=== PATIENT | male | born 1930 | race Caucasian/White ===

== ENCOUNTER 2017-12-17 10:21 | Emergency (ER) | payer MEDICARE, OTHER ==
[2017-12-17 11:06] VITALS: RESP 18
--- NOTE | 2017-12-17 12:26 | ED ---
General Adult HPI - General Chief complaint: Urogenital Stated complaint: blood in catheter Time Seen by Provider: 12/17/17 12:02 Source: patient, RN notes reviewed, old records reviewed Mode of arrival: wheelchair Limitations: physical limitation - History of Present Illness Initial comments: This is an 87-year-old male to the ER for evaluation. Patient just ER today for evaluation regards to blood in his Justin catheter. Patient has indwelling Justin, increased blood 2 days. Positive clots. A she recently had irrigated, symptoms returned, patient denies significant abdominal pain - Related Data Home Medications Medication Instructions Recorded Confirmed Ferrous Sulfate [Feosol] 325 mg PO DAILY@0700 12/17/17 12/17/17 Fluticasone Nasal [place] [Flonase 2 spr EA NOSTRIL DAILY PRN 12/17/17 12/17/17 Nasal [place]] Gabapentin [Neurontin] 300 mg PO BID@07,19 12/17/17 12/17/17 Hydrocortisone Cream 1 applic TOPICAL DAILY PRN 12/17/17 12/17/17 [Hydrocortisone 1% Cream] Loratadine [Claritin] 10 mg PO DAILY@0700 12/17/17 12/17/17 Multivitamins, Thera [Multivitamin 1 tab PO DAILY@0700 12/17/17 12/17/17 (formulary)] Sertraline [Zoloft] 25 mg PO DAILY@0700 12/17/17 12/17/17 Simvastatin 80 mg PO HS@1900 12/17/17 12/17/17 Allergies Allergy/AdvReac Type Severity Reaction Status Date / Time Iodinated Contrast- Oral and Allergy Rash/Hives Verified 12/17/17 12:40 IV Dye iodine Allergy Rash/Hives Verified 12/17/17 12:40 Review of Systems ROS Statement: Those systems with pertinent positive or pertinent negative responses have been documented in the HPI. ROS Other: All systems not noted in ROS Statement are negative. Past Medical History Additional Past Medical History / Comment(s): neuropathy, ca colon, prostate History of Any Multi-Drug Resistant Organisms: None Reported Past Surgical History: Joint Replacement Additional Past Surgical History / Comment(s): AAA repair, bladder, prostate Past Psychological History: No Psychological Hx Reported Smoking Status: Former smoker Past Alcohol Use History: None Reported Past Drug Use History: None Reported General Exam Limitations: physical limitation General appearance: alert, in no apparent distress Head exam: Present: atraumatic, normocephalic, normal inspection Eye exam: Present: normal appearance, PERRL, EOMI. Absent: scleral icterus, conjunctival injection, periorbital swelling ENT exam: Present: normal exam, mucous membranes moist Neck exam: Present: normal inspection. Absent: tenderness, meningismus, lymphadenopathy Respiratory exam: Present: normal lung sounds bilaterally. Absent: respiratory distress, wheezes, rales, rhonchi, stridor Cardiovascular Exam: Present: regular rate, normal rhythm, normal heart sounds. Absent: systolic murmur, diastolic murmur, rubs, gallop, clicks GI/Abdominal exam: Present: soft, normal bowel sounds. Absent: distended, tenderness, guarding, rebound, rigid Extremities exam: Present: normal inspection, full ROM, normal capillary refill. Absent: tenderness, pedal edema, joint swelling, calf tenderness Back exam: Present: normal inspection Neurological exam: Present: alert, oriented X3, CN II-XII intact Psychiatric exam: Present: normal affect, normal mood Skin exam: Present: warm, dry, intact, normal color. Absent: rash Course Vital Signs 12/17/17 12/17/17 11:00 13:32 Temperature 97.6 F Pulse Rate 66 78 Respiratory 18 18 Rate Blood Pressure 90/53 141/70 O2 Sat by Pulse 97 98 Oximetry - Reevaluation(s) Reevaluation #1: 12/17/17 14:17 Dr. Null is here in ER evaluating patient Medical Decision Making - Medical Decision Making 79 male the ER for evaluation of hematuria with urinary retention. Patient has Justin catheter placed without difficulty. Patient can be discharged home Disposition Clinical Impression: Malfunction of Justin catheter, Hematuria Disposition: HOME SELF-CARE Condition: Good Instructions: Hematuria (ED), Justin Catheter Placement and Care (ED) Is patient prescribed a controlled substance at discharge?: No If prescribed controlled substance>3 days was MAPS reviewed?: No When asked, does pt state using other controlled substances?: No Referrals: [facility],Clinic [Primary Care Provider] - 1-2 days
--- NOTE | 2017-12-17 14:33 | P.GSCN ---
History of Present Illness Consult date: 12/17/17 Reason for Consult: Hematuria and urinary retention History of present illness: The patient is an 87-year-old male with a history of prostate cancer previously treated with brachii therapy who has developed recurrent bladder cancer. The patient has previously been treated through the [facility]. His bladder cancers have occurred within the bladder and prostatic fossa and had been previously treated with repeated transurethral resection. The patient has urinary retention which has been treated with an indwelling catheter for over 6 months. The catheter was changed on 12/14/2017. The patient says that his catheter plugged with blood and mucus and was irrigated in the [facility] emergency room on 12/15. He came to the emergency room today because his catheter was plugged. The catheter apparently fell out sometime on his way to the emergency room. 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 Review of Systems - Constitutional Reports as per HPI Past Medical History Additional Past Medical History / Comment(s): neuropathy, ca colon, prostate History of Any Multi-Drug Resistant Organisms: None Reported Past Surgical History: Joint Replacement Additional Past Surgical History / Comment(s): AAA repair, bladder, prostate Past Psychological History: No Psychological Hx Reported Smoking Status: Former smoker Past Alcohol Use History: None Reported Past Drug Use History: None Reported Medications and Allergies Home Medications Medication Instructions Recorded Confirmed Type Ferrous Sulfate [Feosol] 325 mg PO DAILY@0712/17/17 12/17/17 History Fluticasone Nasal [place] [Flonase 2 spr EA NOSTRIL DAILY PRN 12/17/17 12/17/17 History Nasal [place]] Gabapentin [Neurontin] 300 mg PO BID@12/17/17 12/17/17 History Hydrocortisone Cream 1 applic TOPICAL DAILY PRN 12/17/17 12/17/17 History [Hydrocortisone 1% Cream] Loratadine [Claritin] 10 mg PO DAILY@69912/17/17 12/17/17 History Multivitamins, Thera [Multivitamin 1 tab PO DAILY@0712/17/17 12/17/17 History (formulary)] Sertraline [Zoloft] 25 mg PO DAILY@0712/17/17 12/17/17 History Simvastatin 80 mg PO HS@1900 12/17/17 12/17/17 History Allergies Allergy/AdvReac Type Severity Reaction Status Date / Time Iodinated Contrast- Oral and Allergy Rash/Hives Verified 12/17/17 12:40 IV Dye iodine Allergy Rash/Hives Verified 12/17/17 12:40 Surgical - Exam Vital Signs Temp Pulse Resp BP Pulse Ox 97.6 F 66 18 90/53 97 12/17/17 11:00 12/17/17 11:00 12/17/17 11:00 12/17/17 11:00 12/17/17 11:00 - General well developed, well nourished, moderate distress - Respiratory normal respiratory effort - Abdomen Abdomen: tender (Suprapubic region), no organomegaly - Genitourinary normal penis with no external lesions, testicles present, testicles non-tender Assessment and Plan (1) Hematuria Narrative/Plan: The patient's gross hematuria is most likely related to recurrent bladder cancer. The penis was prepped with Betadine solution and I successfully passed an 18- Greek coud catheter into the bladder without difficulty. A small amount of mucus initially drained but the majority of the urine which drained from the bladder appeared grossly clear. The patient suprapubic discomfort resolved following catheter drainage. Tentative arrangements are being made to perform cystoscopy under anesthesia either later in the month or early January. It's unclear why the patient's Justin catheter fell out spontaneously. Current Visit: Yes Status: Acute Code(s): R31.9 - HEMATURIA, UNSPECIFIED SNOMED Code(s): 61026366
[2017-12-17 15:02] VITALS: BP 141/78; PULSE 80; TEMP 98.2
== END 2017-12-17 15:01 | disposition home or self-care (01) ==
LOC: EC 10:21
DX: T83.098A Other mechanical complication of other urinary catheter, initial encounter (principal); R31.9 Hematuria, unspecified; R33.9 Retention of urine, unspecified; G62.9 Polyneuropathy, unspecified; Z87.891 Personal history of nicotine dependence; Z79.899 Other long term (current) drug therapy; Z91.041 Radiographic dye allergy status; Z91.048 Other nonmedicinal substance allergy status; Z85.46 Personal history of malignant neoplasm of prostate; Z98.890 Other specified postprocedural states
CPT/HCPCS: 51702; 99283

== ENCOUNTER → 2018-01-02 | Outpatient (CLI) | payer MEDICARE, OTHER ==
[2018-01-02 10:41] LABS: HCT 32.9 % (39.0-53.0); HGB 10.9 gm/dL (13.0-17.5); MCH 29.4 pg (25.0-35.0); MCV 89.1 fL (80.0-100.0); Mean Platelet Volume 6.5; Platelet Count 347 k/uL (150-450); RBC 3.69 m/uL (4.30-5.90); RDW 14.6 % (11.5-15.5); WBC 7.2 k/uL (3.8-10.6)
[2018-01-02 10:57] LABS: Anion Gap 9 mmol/L; Blood Urea Nitrogen 12 mg/dL (9-20); Calcium 8.9 mg/dL (8.4-10.2); Carbon Dioxide 29 mmol/L (22-30); Chloride 98 mmol/L (98-107); Glucose 105 mg/dL (74-99); Potassium 4.8 mmol/L (3.5-5.1); Sodium 136 mmol/L (137-145)
== END ==
LOC: LABPAT 10:03
PROVIDERS: ATTEND Urology
DX: Z01.812 Encounter for preprocedural laboratory examination (principal); R35.0 Frequency of micturition; C61 Malignant neoplasm of prostate; C67.8 Malignant neoplasm of overlapping sites of bladder; Z79.899 Other long term (current) drug therapy
CPT/HCPCS: 80048; 85027; 87086

== ENCOUNTER 2018-01-09 09:14 | Day surgery (SDC) | payer MEDICARE, OTHER ==
[2018-01-03 13:57] VITALS: BMI 23.3
[~2018-01-09 09:14] MED LIST: AMPICILLIN 1,000 MG in SODIUM CHLORIDE 0.9% 50 ML IVPB STA; DEXAMETHASONE SOD PHOSPHATE 10 MG/ML 1 ML VIAL IV ONE; LACTATED RINGERS 1,000 ML IV SCH; LIDOCAINE 1% 20 ML VIAL (10MG/ML) FOR IV START INTRADERMA PRN; MIDAZOLAM 2 MG/2 ML VIAL IV PRN; ONDANSETRON ODT 4 MG TAB PO ONE; Pre Op ABX Message 1 EACH MISC MISCELLANE ONE; SCOPOLAMINE 1.5MG/72HR PATCH TRANSDERM ONE
[2018-01-09 10:55] VITALS: TEMP 97.7
[2018-01-09] MEDS: GENTAMICIN 150 MG in SODIUM CHLORIDE 0.9% 100 ML IV ONE ×2 (11:00→11:07)
[2018-01-09] MEDS ORDERED: ONDANSETRON 4 MG/2 ML VIAL IVP ONE (11:10)
[2018-01-09] MEDS ORDERED: LIDOCAINE 1% INJ 10MG/ML (20 ML MDV) ONE (11:39)
[2018-01-09] MEDS ORDERED: PROPOFOL 10 MG/ML 20 ML VIAL IV ONE (11:39)
[2018-01-09] MEDS ORDERED: ePHEDrine SULFATE/0.9% NACL/PF 50 MG/5 ML SYRINGE IV ONE (11:39)
[2018-01-09] MEDS ORDERED: fentaNYL (PF) 50 MCG/ML 2 ML AMP ONE (11:39)
[2018-01-09] MEDS ORDERED: SUCCINYLCHOLINE CHLORIDE 100 MG/5 ML SYR IV ONE (11:39)
[2018-01-09] MEDS ORDERED: LACTATED RINGERS 1,000 ML IV ONE (12:45)
--- NOTE | 2018-01-09 13:10 | P.OP ---
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 He continues to have intermittent bleeding. He has had been in urinary retention since the summer which has been managed with an indwelling catheter. Cystoscopy under anesthesia is planned for further evaluation and control of his persistent bleeding Description of Procedure: The patient was taken the operating suite where adequate general anesthesia via orotracheal intubation was instituted. The patient was placed in the dorsal lithotomy position with his legs suspended from padded Shar stirrups. Pneumatic compression stockings were applied to the lower legs. The patient's urethral catheter was irrigated multiple times with sterile water and then removed. The genitalia was prepped with Betadine soap, painted with Betadine solution and draped in a sterile fashion. The penile and prostatic urethra traversed under direct vision using the 25-Turkmen resectoscope sheath visual obturator and 30 lens. The pendulous urethra was unremarkable. 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 The tumor measured over 1.5 cm in length. Prostatic urethra showed evidence of a previous TURP. There was concentric tumor present at the bladder neck adjacent to what appeared to be necrotic tissue. The bladder was examined. A fragment of what appeared to be a Justin catheter was present within the bladder and was removed through the resectoscope. The bladder showed evidence of chronic irritation from the Justin catheter. Other than the tumor at the bladder neck which measured over 2 cm in length no other abnormality was noted. The tumor at the bladder neck and prostatic fossa was then resected using the continuous-flow Gonzalez resectoscope and loop cutting electrode. It was impossible to determine where the prostatic capsule was and only the most superficial growth was resected. The base of the tumors were cauterized to achieve hemostasis. The tumors were then removed from the bladder through the prostatic resectoscope using the Elik evacuator. The tumors within the bulbous urethra were then also resected using the resectoscope. No attempt was made to obtain tumor which appeared to be growing into the spongiosum tissue. The base of the tumors was then cauterized to return for hemostasis. All remaining fragments of tumor were irrigated out through the catheter. The resectoscope was withdrawn. An 18-Turkmen coud catheter was advanced over a 0.035 Glidewire and into the bladder. The catheter was connected to gravity drainage. The patient tolerated the procedure well and left the operative room awake and in satisfactory condition. Blood loss was less than 30 mL. Patient's catheter will be exchanged in 1 month in my office.
[2018-01-09 13:18] VITALS: RESP 16
[2018-01-09] MEDS: fentaNYL (PF) 50 MCG/ML 2 ML AMP IV PRN ×2 (13:25→13:38)
[2018-01-09 15:10] VITALS: BP 137/75; PULSE 73
== END 2018-01-09 15:35 | disposition home or self-care (01) ==
LOC: OR 09:14
PROVIDERS: ATTEND Urology
DX: C67.5 Malignant neoplasm of bladder neck (principal); C7A.8 Other malignant neuroendocrine tumors; Z85.51 Personal history of malignant neoplasm of bladder; Z85.46 Personal history of malignant neoplasm of prostate; Z85.038 Personal history of other malignant neoplasm of large intestine; Z92.3 Personal history of irradiation; I71.4 Abdominal aortic aneurysm, without rupture; E78.00 Pure hypercholesterolemia, unspecified; Z80.6 Family history of leukemia; Z87.891 Personal history of nicotine dependence; E78.5 Hyperlipidemia, unspecified; Z79.2 Long term (current) use of antibiotics; Z79.51 Long term (current) use of inhaled steroids; Z79.899 Other long term (current) drug therapy; Z91.048 Other nonmedicinal substance allergy status
CPT/HCPCS: 52234; C1769; J1100; J2405; J3010; J1580; J0290; 88300; 88307; 88341; 88342

== ENCOUNTER 2018-08-26 22:35 | Inpatient (IN) | payer OTHER, MEDICARE ==
--- NOTE | 2018-08-26 22:44 | ED ---
URI HPI - General Chief Complaint: Upper Respiratory Infection Stated Complaint: Sepsis Time Seen by Provider: 08/26/18 22:42 Source: EMS, RN notes reviewed, old records reviewed Mode of arrival: EMS Limitations: no limitations - History of Present Illness Initial Comments: This is an 88-year-old female who is accepted in transfer from [facility] for evaluation of pneumonia weakness elevated troponin and events bladder CA. Patient has no recent medication changes, she was recently place on antibiotics for again pneumonia. Patient continues to complain of significant weakness. MD Complaint: fever, cough, other (Weakness) -: days(s) Severity: moderate Severity scale (1-10): 6 Consistency: constant Improves With: nothing Worsens With: deep breaths Context: sick contacts, new medications Associated Symptoms: fever, chills, nausea, weight loss Treatments Prior to Arrival: none - Related Data Home Medications Medication Instructions Recorded Confirmed Gabapentin [Neurontin] 300 mg PO BID 12/17/17 08/26/18 Loratadine [Claritin] 10 mg PO DAILY 12/17/17 08/26/18 Sertraline [Zoloft] 25 mg PO DAILY 12/17/17 08/26/18 Atorvastatin [Lipitor] 40 mg PO DAILY 01/03/18 08/26/18 Ferrous Sulfate [Iron] 325 mg PO DAILY 01/03/18 08/26/18 Multivitamin [Men's Multi-Vitamin] 1 each PO DAILY 01/03/18 08/26/18 Bisacodyl 10 mg RECTAL DAILY PRN 08/26/18 08/26/18 Calcium Carbonate [Tums] 500 mg PO QID PRN 08/26/18 08/26/18 Fluticasone Nasal [place] [Flonase 2 spr EA NOSTRIL DAILY 08/26/18 08/26/18 Nasal [place]] Haloperidol Con 2mg/1ml 1 mg IM Q6H PRN 08/26/18 08/26/18 Na Phos,M-B/Na Phos,Di-Ba [Fleet 133 ml RECTAL ONCE PRN 08/26/18 08/26/18 Adult] Allergies Allergy/AdvReac Type Severity Reaction Status Date / Time Iodinated Contrast- Oral and Allergy Rash/Hives Verified 08/26/18 23:00 IV Dye iodine Allergy Rash/Hives Verified 08/26/18 23:00 Review of Systems ROS Statement: Those systems with pertinent positive or pertinent negative responses have been documented in the HPI. ROS Other: All systems not noted in ROS Statement are negative. Past Medical History Past Medical History: Pneumonia Additional Past Medical History / Comment(s): neuropathy, ca colon, prostate History of Any Multi-Drug Resistant Organisms: None Reported Past Surgical History: Joint Replacement Additional Past Surgical History / Comment(s): AAA repair, bladder, prostate Past Psychological History: No Psychological Hx Reported Smoking Status: Former smoker General Exam Limitations: no limitations General appearance: alert, in no apparent distress, lethargic Head exam: Present: atraumatic, normocephalic, normal inspection Eye exam: Present: normal appearance, PERRL, EOMI. Absent: scleral icterus, conjunctival injection, periorbital swelling ENT exam: Present: normal exam, mucous membranes moist Neck exam: Present: normal inspection. Absent: tenderness, meningismus, lymphadenopathy Respiratory exam: Present: normal lung sounds bilaterally. Absent: respiratory distress, wheezes, rales, rhonchi, stridor Cardiovascular Exam: Present: regular rate, normal rhythm, normal heart sounds. Absent: systolic murmur, diastolic murmur, rubs, gallop, clicks GI/Abdominal exam: Present: soft, normal bowel sounds. Absent: distended, tenderness, guarding, rebound, rigid Extremities exam: Present: normal inspection, full ROM, normal capillary refill. Absent: tenderness, pedal edema, joint swelling, calf tenderness Back exam: Present: normal inspection Neurological exam: Present: alert, oriented X3, CN II-XII intact Psychiatric exam: Present: normal affect, normal mood Skin exam: Present: warm, dry, intact, normal color. Absent: rash Course Vital Signs 08/26/18 22:38 Temperature 98.7 F Pulse Rate 89 Respiratory 20 Rate Blood Pressure 97/50 O2 Sat by Pulse 96 Oximetry - Reevaluation(s) Reevaluation #1: 08/26/18 23:36 medical record is reviewed as wella s transfer paperwork Reevaluation #2: 08/26/18 23:36 Patient was recently taken off hospice for treatment of his pneumonia, patient is on hospice secondary to advanced bladder cancer Medical Decision Making - Medical Decision Making 88 male except in transfer from [facility] for evaluation, patient does have elevated troponin, no pneumonia with hyponatremia. Patient will be admitted for continued resuscitation IV antibiotics - Radiology Data Radiology results: report reviewed (Chest x-ray reviewed positive for pneumonia) Disposition Clinical Impression: Pneumonia, Elevated troponin, Hyponatremia, Anasarca Disposition: ADMITTED IP TO THIS HOSP Condition: Fair Is patient prescribed a controlled substance at d/c from ED?: No
[2018-08-26] MEDS ORDERED: LEVOFLOXACIN 750MG-D5W PMX 750 MG in DEXTROSE/WATER 1 150ML.BAG IVPB STA (22:59)
[2018-08-26] MEDS ORDERED: NITROGLYCERIN SL TABS 0.4 MG TAB SUBLINGUAL PRN (22:59)
[2018-08-26] MEDS ORDERED: PIPERACILLIN-TAZOBACTAM 3.375 GM in SODIUM CHLORIDE 0.9% 100 ML IVPB STA (22:59)
[2018-08-26] MEDS ORDERED: PNEUMONIA PROTOCOL UTILIZED 1 EACH MISC PO PRN (22:59)
[2018-08-26] MEDS: SODIUM CHLORIDE 0.9% 1,000 ML IV SCH (23:40)
[2018-08-27] MEDS ORDERED: HYDROcodone/APAP 5-325MG 1 EACH TAB PO STA (01:08)
[2018-08-27] MEDS: PIPERACILLIN-TAZOBACTAM 3.375 GM in SODIUM CHLORIDE 0.9% 100 ML IVPB SCH ×3 (01:29→16:32)
[2018-08-27] MEDS ORDERED: SODIUM CHLORIDE 0.9% 500 ML 500 ML IV ONE (01:41)
--- NOTE | 2018-08-27 02:06 | XR ---
EXAMINATION TYPE: XR chest 1V portable DATE OF EXAM: 08/27/2018 COMPARISON: Yesterday HISTORY: Short of breath TECHNIQUE: Single frontal view of the chest is obtained. FINDINGS: The heart is enlarged. There is pulmonary vascular congestion. There are chest leads. IMPRESSION: Pulmonary infiltrates probably due to pulmonary vascular congestion and congestive heart failure. This appears not significantly different than the exam 5 hours ago. Pneumonia in the left l ower lobe not entirely excluded.
[2018-08-27 02:18] LABS: Creatine Kinase MB 1.2 ng/mL (0.0-2.4)
[2018-08-27 02:24] LABS: Troponin I 0.277 ng/mL (0.000-0.034)
[2018-08-27 07:15] LABS: Basophils % (A) 0 %; Eosinophils % (A) 0 %; HCT 26.2 % (39.0-53.0); HGB 8.2 gm/dL (13.0-17.5); Hypochromasia Marked; Lymphocytes # (A) 0.6 k/uL (1.0-4.8); Lymphocytes % (A) 4 %; MCHC 31.3 g/dL (31.0-37.0); MCV 89.5 fL (80.0-100.0); Mean Platelet Volume 7.4; Monocytes # (A) 0.3 k/uL (0-1.0); Monocytes % (A) 2 %; Neutrophils # (A) 12.8 k/uL (1.3-7.7); Neutrophils % (A) 93 %; Platelet Count 246 k/uL (150-450); RBC 2.92 m/uL (4.30-5.90); RDW 15.8 % (11.5-15.5); WBC 13.8 k/uL (3.8-10.6)
[2018-08-27] MEDS: IPRATROPIUM-ALBUTEROL 3 ML NEB INHALATION SCH ×4 (07:29→20:25)
[2018-08-27 07:33] LABS: Calcium 7.6 mg/dL (8.4-10.2); Potassium 4.6 mmol/L (3.5-5.1)
[2018-08-27] MEDS: SODIUM CHLORIDE 0.9% 1,000 ML IV SCH ×2 (07:46→16:32)
[2018-08-27 08:01] LABS: Creatine Kinase MB 1.5 ng/mL (0.0-2.4)
[2018-08-27] MEDS: ASPIRIN 325 MG TAB PO SCH (08:04)
[2018-08-27 08:08] LABS: Troponin I 0.196 ng/mL (0.000-0.034)
[2018-08-27] MEDS: ACETAMINOPHEN TAB 500 MG TAB PO PRN (08:15)
--- NOTE | 2018-08-27 08:46 | XR ---
EXAMINATION TYPE: XR chest 1V DATE OF EXAM: 08/27/2018 HISTORY: Shortness of breath. COMPARISON: 08/27/2018 TECHNIQUE: Single view of the chest is submitted. FINDINGS: Pulmonary venous congestion persists although is somewhat improved. Scattered areas of infiltrate and small effusion also improved as well. The heart is stable. Hilar and mediastinal structures are within normal limits. Degenerative changes are seen of the dorsal spine. IMPRESSION: 1. Persistent but improving features of congestive failure. Underlying filtrates of other etiology n ot excluded. Correlate clinically and progress studies are recommended.
--- NOTE | 2018-08-27 10:00 | P.CRDCN ---
History of Present Illness Consult date: 08/27/18 History of present illness: This is a 88-year-old gentleman with history of prostate cancer was treated with a Breaky therapy. Subsequently had bladder cancer and had problems with urination. Patient had indwelling catheter. Patient lives in adult foster home. Apparently patient was feeling weak and he was diagnosed to have pneumonia. He was also having some difficulty urinating. He went to the [facility] emergency room and subsequently was transferred to this hospital for further evaluation. We're asked to see the patient because of elevated troponin values. His creatinine is 1.3 which seemed to be increased compared to the previous readings. Patient denied any chest pain. He does complain of mild shortness of breath. A chest x-ray showed questionable vascular congestion. At the time of my examination patient is in the bed lying almost flat without any difficulty. The troponin values are abnormal but they're not consistent with acute coronary syndrome. We will going to get an echocardiogram and also proBNP levels. May consider adding small dose of Lasix. Clinically patient has mild expiratory wheezes. A pulmonary evaluation may also be considered. Review of Systems As per the chart Past Medical History Past Medical History: Pneumonia Additional Past Medical History / Comment(s): neuropathy, ca colon, prostate disorder, urethral cancer. History of Any Multi-Drug Resistant Organisms: None Reported Past Surgical History: Joint Replacement Additional Past Surgical History / Comment(s): AAA repair, bladder, prostate, bilateral knee replacement. Past Psychological History: No Psychological Hx Reported Smoking Status: Former smoker Past Alcohol Use History: None Reported Past Drug Use History: None Reported Medications and Allergies Home Medications Medication Instructions Recorded Confirmed Type Gabapentin [Neurontin] 300 mg PO BID 12/17/17 08/26/18 History Loratadine [Claritin] 10 mg PO DAILY 12/17/17 08/26/18 History Sertraline [Zoloft] 25 mg PO DAILY 12/17/17 08/26/18 History Atorvastatin [Lipitor] 40 mg PO DAILY 01/03/18 08/26/18 History Ferrous Sulfate [Iron] 325 mg PO DAILY 01/03/18 08/26/18 History Multivitamin [Men's Multi-Vitamin] 1 each PO DAILY 01/03/18 08/26/18 History Bisacodyl 10 mg RECTAL DAILY PRN 08/26/18 08/26/18 History Calcium Carbonate [Tums] 500 mg PO QID PRN 08/26/18 08/26/18 History Fluticasone Nasal [place] [Flonase 2 spr EA NOSTRIL DAILY 08/26/18 08/26/18 History Nasal [place]] Haloperidol Con 2mg/1ml 1 mg IM Q6H PRN 08/26/18 08/26/18 History Na Phos,M-B/Na Phos,Di-Ba [Fleet 133 ml RECTAL ONCE PRN 08/26/18 08/26/18 History Adult] Allergies Allergy/AdvReac Type Severity Reaction Status Date / Time Iodinated Contrast- Oral and Allergy Rash/Hives Verified 08/26/18 23:00 IV Dye iodine Allergy Rash/Hives Verified 08/26/18 23:00 Physical Exam Vitals: Vital Signs Temp Pulse Pulse Resp BP BP Pulse Ox 08/27/18 07:40 84 08/27/18 07:31 82 95 08/27/18 03:27 79 87/43 95 08/27/18 02:56 16 08/27/18 01:31 84/44 08/27/18 01:11 98.0 F 86 16 83/44 94 L 08/26/18 23:41 98.1 F 88 16 95/52 99 08/26/18 22:38 98.7 F 89 20 97/50 96 Intake and Output 08/26/18 08/27/18 08/27/18 22:59 06:59 14:59 Intake Total 100 Balance 100 Intake: Oral 100 Other: Voiding Method Indwelling Catheter Weight 72.575 kg 72.5 kg GENERAL EXAM: Patient is alert and oriented and doesn't appear to be in any acute distress HEENT: Normocephalic. Normal reaction of pupils, equal size, normal range of extraocular motion. No erythema or exudates in the throat. NECK: No masses, no nuchal rigidity. CHEST: No chest wall deformity. LUNGS: Mild expiratory wheezes HEART: S1 and S2 normal with no audible mumurs or gallops. Regular rhythm, femorals equal on both sides.. ABDOMEN: Soft SKIN: No rashes CENTRAL NERVOUS SYSTEM: No focal deficits. EXTREMITIES: No cyanosis, clubbing or edema. Results 08/27/18 05:55 08/27/18 05:55 Cardiac Enzymes 08/27/18 08/27/18 Range/Units 01:03 05:55 CK-MB (CK-2) 1.2 1.5 (0.0-2.4) ng/mL Troponin I 0.277 H* 0.196 H* (0.000-0.034) ng/mL Lipids 08/27/18 Range/Units 05:55 Triglycerides 138 (<150) mg/dL Cholesterol 69 (<200) mg/dL HDL Cholesterol 10 L (40-60) mg/dL CBC 08/27/18 Range/Units 05:55 WBC 13.8 H (3.8-10.6) k/uL RBC 2.92 L (4.30-5.90) m/uL Hgb 8.2 L (13.0-17.5) gm/dL Hct 26.2 L (39.0-53.0) % Plt Count 246 (150-450) k/uL Comprehensive Metabolic Panel 08/27/18 Range/Units 05:55 Sodium 129 L (137-145) mmol/L Potassium 4.6 (3.5-5.1) mmol/L Chloride 99 (98-107) mmol/L Carbon Dioxide 24 (22-30) mmol/L BUN 30 H (9-20) mg/dL Creatinine 1.39 H (0.66-1.25) mg/dL Glucose 81 (74-99) mg/dL Calcium 7.6 L (8.4-10.2) mg/dL Current Medications Generic Name Dose Route Start Last Admin Trade Name Freq PRN Reason Stop Dose Admin Acetaminophen 500 mg 08/27/18 01:56 08/27/18 08:15 Tylenol Tab PO 500 mg Q4HR PRN Administration Fever and/ or Pain Albuterol/Ipratropium 3 ml 08/27/18 08:00 08/27/18 07:29 Duoneb 0.5 Mg-3 Mg/3 Ml Soln INHALATION 3 ml RT-QID SRIKANTH Administration Aspirin 325 mg 08/27/18 09:00 08/27/18 08:04 Aspirin PO 325 mg DAILY SRIKANTH Administration Levofloxacin 750 mg/ IV 150 mls @ 100 mls/hr 08/27/18 23:00 Solution IVPB 09/08/18 23:01 Q24H SRIKANTH Piperacillin Sod/Tazobactam 100 mls @ 25 mls/hr 08/27/18 01:00 08/27/18 08:04 Sod 3.375 gm/ Sodium Chloride IVPB 25 mls/hr Q8H SRIKANTH Administration Sodium Chloride 1,000 mls @ 100 mls/hr 08/26/18 23:00 08/27/18 07:46 Saline 0.9% IV Not Given .Q10H SRIKANTH Miscellaneous Information 1 each 08/26/18 22:59 Pneumonia Protocol Utilized PO ONCE PRN Per Protocol Nitroglycerin 0.4 mg 08/26/18 22:59 Nitrostat SUBLINGUAL Q5M PRN Chest Pain Intake and Output 08/26/18 08/27/18 08/27/18 22:59 06:59 14:59 Intake Total 100 Balance 100 Intake: Oral 100 Other: Voiding Method Indwelling Catheter Weight 72.575 kg 72.5 kg 08/27/18 05:55 08/27/18 05:55 EKG Interpretations (text) Not available Assessment and Plan (1) Elevated troponin Current Visit: Yes Status: Acute Code(s): R74.8 - ABNORMAL LEVELS OF OTHER SERUM ENZYMES SNOMED Code(s): 617769231 (2) Hyponatremia Current Visit: Yes Status: Acute Code(s): E87.1 - HYPO-OSMOLALITY AND HYPONATREMIA SNOMED Code(s): 13796535 (3) Pneumonia Current Visit: Yes Status: Acute Code(s): J18.9 - PNEUMONIA, UNSPECIFIED ORGANISM SNOMED Code(s): 222592398 Plan: Elevation of the troponin values is not consistent with acute coronary syndrome. Could be related to high creatinine. Underlying ischemic heart disease cannot be excluded. I'll obtain an echocardiogram proBNP level. If the echo shows normal LV function, no further cardiac intervention is needed
--- NOTE | 2018-08-27 13:21 | P.GSCN ---
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 Patient gets his catheter changed on a regular basis by Dr. Clarke. Apparently over the last week as developed scrotal swelling. He developed a necrotic area of the anterior scrotum. He was transferred down to [facility] for presumed pneumonia by [facility] for presumed pneumonia. The rest see the patient for the scrotal issue. Patient says the swelling has been present again for about a week with a necrotic area approximately 2-3 days. It is somewhat painful. He is afebrile. His white count is normal. His lactic acid is elevated minimally at 2.1. He is chronically anemic with a hemoglobin of 8.2. According to the patient's son he had his catheter changed last and apparently there is no swelling. He is a chronic indwelling urethral catheter. Review of Systems - Constitutional Reports chronic pain, Reports fatigue - Genitourinary Reports as per HPI Past Medical History Past Medical History: Pneumonia Additional Past Medical History / Comment(s): neuropathy, ca colon, prostate disorder, urethral cancer. History of Any Multi-Drug Resistant Organisms: None Reported Past Surgical History: Joint Replacement Additional Past Surgical History / Comment(s): AAA repair, bladder, prostate, bilateral knee replacement. Past Psychological History: No Psychological Hx Reported Smoking Status: Former smoker Past Alcohol Use History: None Reported Past Drug Use History: None Reported Medications and Allergies Home Medications Medication Instructions Recorded Confirmed Type Gabapentin [Neurontin] 300 mg PO BID 12/17/17 08/26/18 History Loratadine [Claritin] 10 mg PO DAILY 12/17/17 08/26/18 History Sertraline [Zoloft] 25 mg PO DAILY 12/17/17 08/26/18 History Atorvastatin [Lipitor] 40 mg PO DAILY 01/03/18 08/26/18 History Ferrous Sulfate [Iron] 325 mg PO DAILY 01/03/18 08/26/18 History Multivitamin [Men's Multi-Vitamin] 1 each PO DAILY 01/03/18 08/26/18 History Bisacodyl 10 mg RECTAL DAILY PRN 08/26/18 08/26/18 History Calcium Carbonate [Tums] 500 mg PO QID PRN 08/26/18 08/26/18 History Fluticasone Nasal [place] [Flonase 2 spr EA NOSTRIL DAILY 08/26/18 08/26/18 History Nasal [place]] Haloperidol Con 2mg/1ml 1 mg IM Q6H PRN 08/26/18 08/26/18 History Na Phos,M-B/Na Phos,Di-Ba [Fleet 133 ml RECTAL ONCE PRN 08/26/18 08/26/18 History Adult] Allergies Allergy/AdvReac Type Severity Reaction Status Date / Time Iodinated Contrast- Oral and Allergy Rash/Hives Verified 08/26/18 23:00 IV Dye iodine Allergy Rash/Hives Verified 08/26/18 23:00 Surgical - Exam Vital Signs Temp Pulse Resp BP Pulse Ox 98.7 F 89 20 97/50 96 08/26/18 22:38 08/26/18 22:38 08/26/18 22:38 08/26/18 22:38 08/26/18 22:38 - General moderate distress, chronically ill - Eyes PERRL - ENT no hearing loss - Neck trachea midline - Respiratory normal expansion, normal respiratory effort - Cardiovascular Rhythm: regular - Abdomen Abdomen: soft, non tender - Genitourinary The penis has an indwelling catheter. There is marked scrotal edema in particular on the left side. There is a large area of blackened skin the anterior scrotum measuring probably 8 cm x 3 cm in the midline. There is no crepitus. - Neurologic normal sensation - Musculoskeletal normal posture - Psychiatric oriented to time, oriented to person, oriented to place, speech is normal, memory intact Results - Labs 08/27/18 05:55 08/27/18 05:55 Abnormal Lab Results - Last 24 Hours (Table) 08/27/18 08/27/18 08/27/18 Range/Units 01:03 02:54 05:55 WBC (3.8-10.6) k/uL RBC (4.30-5.90) m/uL Hgb (13.0-17.5) gm/dL Hct (39.0-53.0) % RDW (11.5-15.5) % Neutrophils # (1.3-7.7) k/uL Lymphocytes # (1.0-4.8) k/uL Sodium (137-145) mmol/L BUN (9-20) mg/dL Creatinine (0.66-1.25) mg/dL Plasma Lactic Acid Tristan 2.1 H* (0.7-2.0) mmol/L Calcium (8.4-10.2) mg/dL Troponin I 0.277 H* 0.196 H* (0.000-0.034) ng/mL HDL Cholesterol (40-60) mg/dL 08/27/18 08/27/18 Range/Units 05:55 05:55 WBC 13.8 H (3.8-10.6) k/uL RBC 2.92 L (4.30-5.90) m/uL Hgb 8.2 L (13.0-17.5) gm/dL Hct 26.2 L (39.0-53.0) % RDW 15.8 H (11.5-15.5) % Neutrophils # 12.8 H (1.3-7.7) k/uL Lymphocytes # 0.6 L (1.0-4.8) k/uL Sodium 129 L (137-145) mmol/L BUN 30 H (9-20) mg/dL Creatinine 1.39 H (0.66-1.25) mg/dL Plasma Lactic Acid Tristan (0.7-2.0) mmol/L Calcium 7.6 L (8.4-10.2) mg/dL Troponin I (0.000-0.034) ng/mL HDL Cholesterol 10 L (40-60) mg/dL Diabetes panel 08/27/18 Range/Units 05:55 Sodium 129 L (137-145) mmol/L Potassium 4.6 (3.5-5.1) mmol/L Chloride 99 (98-107) mmol/L Carbon Dioxide 24 (22-30) mmol/L BUN 30 H (9-20) mg/dL Creatinine 1.39 H (0.66-1.25) mg/dL Glucose 81 (74-99) mg/dL Calcium 7.6 L (8.4-10.2) mg/dL Triglycerides 138 (<150) mg/dL HDL Cholesterol 10 L (40-60) mg/dL Calcium panel 08/27/18 Range/Units 05:55 Calcium 7.6 L (8.4-10.2) mg/dL Pituitary panel 08/27/18 Range/Units 05:55 Sodium 129 L (137-145) mmol/L Potassium 4.6 (3.5-5.1) mmol/L Chloride 99 (98-107) mmol/L Carbon Dioxide 24 (22-30) mmol/L BUN 30 H (9-20) mg/dL Creatinine 1.39 H (0.66-1.25) mg/dL Glucose 81 (74-99) mg/dL Calcium 7.6 L (8.4-10.2) mg/dL Adrenal panel 08/27/18 Range/Units 05:55 Sodium 129 L (137-145) mmol/L Potassium 4.6 (3.5-5.1) mmol/L Chloride 99 (98-107) mmol/L Carbon Dioxide 24 (22-30) mmol/L BUN 30 H (9-20) mg/dL Creatinine 1.39 H (0.66-1.25) mg/dL Glucose 81 (74-99) mg/dL Calcium 7.6 L (8.4-10.2) mg/dL Assessment and Plan Assessment: Impression: Gangrene of scrotum with scrotal edema, prostate cancer post radiation therapy., cancer the urothelium of the prostate. Chronic urine retention. Recommendations. This patient will need a scrotal exploration and debridement of necrotic tissue and drainage of abscess fluid. This has been discussed with the patient and his son. This flap to be done later today as he has eaten lunch.
[2018-08-27] MEDS ORDERED: VANCOMYCIN IV PER PHARMACY 1 EACH MISC MISCELLANE PRN (17:00)
[2018-08-27] MEDS ORDERED: VANCOMYCIN 1,250 MG in SODIUM CHLORIDE 0.9% 250 ML IVPB ONE (17:15)
[2018-08-27] MEDS ORDERED: DEXTROSE 5% IN WATER 100 ML with AMIODARONE 150 MG IV ONE (17:56)
[2018-08-27 20:09] LABS: Glucose,Whole Blood 105 mg/dL (75-99)
[2018-08-27] MEDS ORDERED: SODIUM CHLORIDE 0.9% 1,000 ML IV SCH (21:30)
[2018-08-27] MEDS ORDERED: LEVOFLOXACIN 750MG-D5W PMX 750 MG in DEXTROSE/WATER 1 150ML.BAG IVPB SCH (23:00)
[2018-08-28] MEDS: PIPERACILLIN-TAZOBACTAM 3.375 GM in SODIUM CHLORIDE 0.9% 100 ML IVPB SCH ×3 (00:21→17:32)
--- NOTE | 2018-08-28 00:42 | P.HPIM ---
History of Present Illness H&P Date: 08/27/18 Chief Complaint: Weakness Patient is a 88-year-old male with a known history of prostate cancer, urothelial cancer and chronic indwelling catheter presented to [facility] initially from [facility] home with complaints of generalized weakness and scrotal swelling for past 1 week. Patient was found have elevated troponin level and was eventually transferred to [facility]. There was also concern for pneumonia at the time. Patient was having dark discoloration and swelling of the scrotal area for the past 1 week. Patient does have pain somewhat. Otherwise patient denied any complaints of chest pain. Mild shortness of breath. Chest x-ray showed atelectasis and possible vascular congestion. Patient was found have necrotic scrotum. Patient was seen by urology and is planning for OR in the afternoon. Patient is on broad-spectrum antibiotics currently. Cardiology and ID was consulted as well. Chest x-ray showed persistent but improving features of congestive heart failure. Underlying infiltrate of other etiology not excluded. Correlate clinically and progress studies are recommended. Review of Systems Constitutional: Patient denies any fever or chills . Does have generalized weakness and malaise.. Abdomen: Patient denied nausea vomiting and diarrhea and abdominal pain. Cardiovascular: Patient denies any chest pain or short of breath no palpitations. Respiratory: patient denied any cough is from production. No shortness of breath Neurologic: Patient denied any numbness or tingling headache. Musculoskeletal: Patient denies any complaints of joint swelling or deformity. Skin: Negative. Dark discoloration of the scrotal skin. Psychiatric: Negative Endocrine: No heat or cold intolerance. No recent weight gain. Genitourinary: No dysuria or hematuria. All other 14 point ROS negative except the above Past Medical History Past Medical History: Pneumonia Additional Past Medical History / Comment(s): neuropathy, ca colon, prostate disorder, urethral cancer. History of Any Multi-Drug Resistant Organisms: None Reported Past Surgical History: Joint Replacement Additional Past Surgical History / Comment(s): AAA repair, bladder, prostate, bilateral knee replacement. Past Psychological History: No Psychological Hx Reported Smoking Status: Former smoker Past Alcohol Use History: None Reported Past Drug Use History: None Reported Medications and Allergies Home Medications Medication Instructions Recorded Confirmed Type Gabapentin [Neurontin] 300 mg PO BID 12/17/17 08/26/18 History Loratadine [Claritin] 10 mg PO DAILY 12/17/17 08/26/18 History Sertraline [Zoloft] 25 mg PO DAILY 12/17/17 08/26/18 History Atorvastatin [Lipitor] 40 mg PO DAILY 01/03/18 08/26/18 History Ferrous Sulfate [Iron] 325 mg PO DAILY 01/03/18 08/26/18 History Multivitamin [Men's Multi-Vitamin] 1 each PO DAILY 01/03/18 08/26/18 History Bisacodyl 10 mg RECTAL DAILY PRN 08/26/18 08/26/18 History Calcium Carbonate [Tums] 500 mg PO QID PRN 08/26/18 08/26/18 History Fluticasone Nasal [place] [Flonase 2 spr EA NOSTRIL DAILY 08/26/18 08/26/18 History Nasal [place]] Haloperidol Con 2mg/1ml 1 mg IM Q6H PRN 08/26/18 08/26/18 History Na Phos,M-B/Na Phos,Di-Ba [Fleet 133 ml RECTAL ONCE PRN 08/26/18 08/26/18 History Adult] Allergies Allergy/AdvReac Type Severity Reaction Status Date / Time Iodinated Contrast- Oral and Allergy Rash/Hives Verified 08/26/18 23:00 IV Dye iodine Allergy Rash/Hives Verified 08/26/18 23:00 Physical Exam Vitals: Vital Signs Temp Pulse Pulse Resp BP BP Pulse Ox 08/27/18 12:26 90 08/27/18 12:12 80 08/27/18 12:00 98.7 F 80 20 92/52 97 08/27/18 07:50 98.0 F 104 H 20 98 08/27/18 07:40 84 08/27/18 07:31 82 95 08/27/18 03:27 79 87/43 95 08/27/18 02:56 16 08/27/18 01:31 84/44 08/27/18 01:11 98.0 F 86 16 83/44 94 L 08/26/18 23:41 98.1 F 88 16 95/52 99 08/26/18 22:38 98.7 F 89 20 97/50 96 Intake and Output 08/26/18 08/27/18 08/27/18 22:59 06:59 14:59 Intake Total 100 Balance 100 Intake: Oral 100 Other: Voiding Method Indwelling Catheter Indwelling Catheter Weight 72.575 kg 72.5 kg PHYSICAL EXAMINATION: Patient is lying in the bed comfortably, no acute distress, awake alert and oriented. Seems lethargic. HEENT: Normocephalic. Neck is supple. Pupils reactive. Nostrils clear. Oral cavity is moist. Ears reveal no drainage. Neck reveals no JVD, carotid bruits, or thyromegaly. CHEST EXAMINATION: Trachea is central. Symmetrical expansion. Bibasilar diminished air entry. Lung delaney clear to auscultation and percussion. CARDIAC: Normal S1, S2 with no gallops. No murmurs ABDOMEN: Soft. Bowel sounds normal. No organomegaly. No abdominal bruits. Extremities: reveal no edema. No clubbing or cyanosis Neurologically awake, alert, oriented x3 with well-coordinated movements. No focal deficits noted Skin: No rash or skin lesions. Dark discoloration of the scrotal skin and no pulling discharge noted. Psychiatric: Coperative. Nonsuicidal Musculoskeletal: No joint swelling or deformity. Normal range of motion. Results CBC & Chem 7: 08/27/18 05:55 08/27/18 05:55 Labs: Abnormal Lab Results - Last 24 Hours (Table) 08/27/18 08/27/18 08/27/18 Range/Units 01:03 02:54 05:55 WBC (3.8-10.6) k/uL RBC (4.30-5.90) m/uL Hgb (13.0-17.5) gm/dL Hct (39.0-53.0) % RDW (11.5-15.5) % Neutrophils # (1.3-7.7) k/uL Lymphocytes # (1.0-4.8) k/uL Sodium (137-145) mmol/L BUN (9-20) mg/dL Creatinine (0.66-1.25) mg/dL Plasma Lactic Acid Tristan 2.1 H* (0.7-2.0) mmol/L Calcium (8.4-10.2) mg/dL Troponin I 0.277 H* 0.196 H* (0.000-0.034) ng/mL HDL Cholesterol (40-60) mg/dL 08/27/18 08/27/18 Range/Units 05:55 05:55 WBC 13.8 H (3.8-10.6) k/uL RBC 2.92 L (4.30-5.90) m/uL Hgb 8.2 L (13.0-17.5) gm/dL Hct 26.2 L (39.0-53.0) % RDW 15.8 H (11.5-15.5) % Neutrophils # 12.8 H (1.3-7.7) k/uL Lymphocytes # 0.6 L (1.0-4.8) k/uL Sodium 129 L (137-145) mmol/L BUN 30 H (9-20) mg/dL Creatinine 1.39 H (0.66-1.25) mg/dL Plasma Lactic Acid Tristan (0.7-2.0) mmol/L Calcium 7.6 L (8.4-10.2) mg/dL Troponin I (0.000-0.034) ng/mL HDL Cholesterol 10 L (40-60) mg/dL Thrombosis Risk Factor Assmnt - DVT/VTE Prophylaxis DVT/VTE Prophylaxis: Pharmacologic Prophylaxis ordered - Choose All That Apply Each Factor Represents 1 point: Sepsis (< 1month), Serious lung disease incl. pneumonia (< 1month), Swollen legs (current) Each Risk Factor Represents 2 Points: Patient confined to bed, Malignancy Each Risk Factor Represents 3 Points: Age 75 years or older Thrombosis Risk Factor Assessment Total Risk Factor Score: 10 Thrombosis Risk Factor Assessment Level: High Risk Assessment and Plan Assessment: Sepsis secondary to scrotal gangrene Elevated troponin level. Likely demand ischemia unlikely ACS at this time Lactic acidosis. Improved Pulmonary vascular congestion with possible pneumonia Chronic normocytic anemia History of prostate cancer and urothelial involvement. Chronic indwelling Justin catheter. Last exchange 5 days back Peripheral neuropathy. Nondiabetic History of AAA repair History of smoking DVT prophylaxis. Patient will be continued on broad-spectrum antibiotics in the form of vancomycin and Zosyn. Continue with IV hydration and monitor respiratory status. Urology is planning for debridement of the neck or tissue this afternoon. Continue the telemetry monitoring and serial EKGs and troponins. Follow up closely and further recommendations based on the clinical course. Prognosis is guarded this time. Time with Patient: Greater than 30
[2018-08-28] MEDS: AMIODARONE 450 MG in DEXTROSE 5% IN WATER 250 ML IV SCH ×8 (04:40→16:29)
[2018-08-28] MEDS: ACETAMINOPHEN TAB 500 MG TAB PO PRN (04:43)
[2018-08-28 04:56] LABS: Basophils % (A) 0 %; Eosinophils # (A) 0.1 k/uL (0-0.7); Eosinophils % (A) 0 %; HCT 29.7 % (39.0-53.0); HGB 9.1 gm/dL (13.0-17.5); Hypochromasia Marked; Lymphocytes # (A) 0.6 k/uL (1.0-4.8); Lymphocytes % (A) 5 %; MCH 27.8 pg (25.0-35.0); MCHC 30.7 g/dL (31.0-37.0); MCV 90.4 fL (80.0-100.0); Mean Platelet Volume 7.4; Monocytes # (A) 0.2 k/uL (0-1.0); Monocytes % (A) 2 %; Neutrophils # (A) 10.4 k/uL (1.3-7.7); Neutrophils % (A) 91 %; Platelet Count 245 k/uL (150-450); RBC 3.29 m/uL (4.30-5.90); WBC 11.5 k/uL (3.8-10.6)
[2018-08-28 04:58] LABS: Calcium 8.1 mg/dL (8.4-10.2); Phosphorus 3.5 mg/dL (2.5-4.5); Potassium 4.3 mmol/L (3.5-5.1); Total Bilirubin 0.4 mg/dL (0.2-1.3); Total Protein 5.7 g/dL (6.3-8.2)
[2018-08-28] MEDS ORDERED: LACTATED RINGERS 1,000 ML IV ONE ×3 (06:26→07:47)
--- NOTE | 2018-08-28 06:41 | XR ---
EXAMINATION TYPE: XR chest 1V portable DATE OF EXAM: 08/28/2018 CLINICAL HISTORY: Difficulty breathing progress study. TECHNIQUE: Single AP portable upright view of the chest is obtained. COMPARISON: Chest x-ray from one day earlier and older studies. FINDINGS: Degenerative change right shoulder is redemonstrated. There is chronic parenchymal change with persistent left basilar opacity. Right lung remains clear. No pneumothorax is seen bilaterally. Cardiac silhouette size is stable and upper limits of normal with atherosclerotic thoracic aorta. IMPRESSION: Overall stable findings, chronic parenchymal change with persistent patchy left basilar atelectasis and/or infiltrate and suspected small left pleural effusion.
--- NOTE | 2018-08-28 07:52 | P.OP ---
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 Drainage of large abscess, placement of open suprapubic cystostomy. Anesthesia: KARINA Surgeon: Navi Romero Estimated Blood Loss (ml): 100 Pathology: other (Cultures and tissue) Condition: stable Disposition: PACU Indications for Procedure: The patient is 88. He has a history of radiation therapy for prostate cancer. He has a history of urothelial carcinoma of the prosthetic urethra. He has a chronic indwelling catheter. He came from [facility] is supposedly pneumonia but was found to have a very inflamed enlarged scrotum gangrene of the anterior scrotal wall. Consistent with Car's gangrene. He was to have surgery yesterday but developed supraventricular tachycardia and required to be stabilized in the ICU before surgery this morning. Description of Procedure: The patient is brought to the operating suite. He's placed lithotomy position with sterile prep and drape. There is a large area of necrosis in the anterior scrotal wall 3-4 cm in diameter by 8 cm in length. I incised and that drained a large amount of fluid that is cultured anaerobically and aerobically. I excised the necrotic tissue. I thoroughly debride as much as I can all the necrotic tissue in the scrotum. The necrosis has not penetrated through the tunica vaginalis. After extensive degree debridement back to vascular tissue I then moved suprapubically. I make a suprapubic incision. Open the rectus fascia. I slowly dissected until identify the bladder. A cystotomy is made. A new 18-[place] Justin catheters placed the bladder through separate stab incision. A Hector drain is brought through separate stab incision. The bladder is closed with 2 layers of 2-0 Vicryl. The rectus fascias closed with interrupted 0 PDS. The skin was loosely stapled. When I irrigated the suprapubic tube and the urethral catheter in the process it appears that there may be a leak in the urethra that could be the origin of his injury. The patient awake and returned to recovery room. His condition is guarded.
[2018-08-28] MEDS: fentaNYL (PF) 50 MCG/ML 2 ML AMP IV ONE ×2 (08:22→08:28)
[2018-08-28] MEDS: IPRATROPIUM-ALBUTEROL 3 ML NEB INHALATION SCH ×4 (08:25→20:11)
--- NOTE | 2018-08-28 08:42 | CONS ---
CONSULTATION DATE OF SERVICE: 08/27/2018. REASON FOR CONSULTATION: Sacral cellulitis abscess and antibiotic recommendation. HISTORY OF PRESENT ILLNESS: The patient is an 88-year-old male with a past medical history significant for prostate cancer. The patient did have chronic urinary outflow obstruction requiring chronic indwelling Justin catheter. The patient apparently developed a swelling of his scrotal area that has been getting worse for the last 1 week with development of a black eschar to the scrotal area and pain that has been getting worse for the last 2-3 days. The patient describes the pain to be more of a dull aching pain 5 to 6/10, and worse with touching of the scrotal area associated with some fall smelling, but no open wound or any drainage. The patient did have some chills but denies any high-grade fever. Apparently the patient was initially evaluated at [facility] with apparent diagnosis of pneumonia failing outpatient therapy as the patient was transferred to the [facility] ER for further evaluation of the same. The patient did have x-rays done which shows pulmonary due to pulmonary vascular congestion and no definite pneumonia. The patient did not have a fever however, his white count was elevated at 13.8, and lactic acid elevated at 2.1. The patient was evaluated by Urology with a plan for debridement of the scrotal necrotic area this evening. Blood cultures have been obtained which are currently pending. REVIEW OF SYSTEMS: Positive for weakness, some chills. No high-grade fever. Eyes: No complaint. ENT no complaint. Respiratory: Cough and shortness of breath. Cardiovascular no complaint. Genitourinary as per HPI. Respiratory as per HPI. Musculoskeletal no complaint. Integumentary: No complaint. Psychological no complaint. Endocrine no complaint. Neurologic no complaint. PAST MEDICAL HISTORY: Colon cancer, prostate cancer and neuropathy pneumonia, abdominal aortic aneurysm, osteoarthritis. PAST SURGICAL HISTORY: Abdominal aortic aneurysm repair, prostate surgery, bilateral knee replacement. SOCIAL HISTORY: Remote history of smoking. No drinking or drug use. FAMILY HISTORY: No pertinent findings noticed. ALLERGIES: TO IODINATED CONTRAST DYE BOTH ORAL AND IV. MEDICATION: Medications include the patient is currently on Levaquin and Zosyn, DuoNeb, aspirin, Lipitor, Nitrostat, Zoloft. On examination, blood pressure 90/53 with a pulse of 68, temperature is 98. He is 98% on 2 L nasal cannula. General description is an elderly male lying in bed in no distress. No tachypnea or accessory muscles of respiration use. HEENT examination shows slight pallor. No scleral icterus. Oral mucosal membranes are dry. No pharyngeal erythema or thrush. NECK: Trachea central. No thyromegaly. Lungs: Unlabored breathing. Clear to auscultation anteriorly. No wheeze or crackles. Heart S1, S2. Regular rate and rhythm. No added sounds. Abdomen soft, no tenderness. No guarding or rigidity. Examination of genitourinary area the patient did have significant swelling of the scrotal area with necrotic anterior scrotal significantly involving most of the scrotal area with very followup smell. The patient did have a Justin catheter. Extremities no edema of the feet. Skin examination: No rash or mass palpable. Neurological: Patient is awake, alert, and oriented. Mood and affect normal. LABS: Hemoglobin 8.2 with white count 13.8 BUN of 30, creatinine 1.3, and electrolytes have been normal. Lactic acid was 2.18. DIAGNOSTIC IMPRESSION AND PLAN: 1. Patient with significant scrotal cellulitis with necrotic skin with foul smelling for underlying abscess in this patient who has been in and out of the hospital. We need to cover for the resistant gram positive as well as gram- negative pathogen. 2. Patient does have borderline kidney function high risk of nephrotoxicity. Vanco trough level will need to be monitored very closely. PLAN: 1. Zosyn 3.375 g q.8 hours. However, discontinue the Levaquin. 2. Add vancomycin pharmacy to dose target of 15 we will watch his kidney function very closely. 3. Recommend obtaining both aerobic and anaerobic cultures at time of debridement with wound and drainage of an abscess. 4. IV fluids. 5. We will follow clinical condition and culture to further adjust medication if needed. Thank you for this consultation. We will follow this patient along with you. MMODL / IJN: [id number] /
--- NOTE | 2018-08-28 08:53 | P.PN ---
Progress Note - Text Patient not in the room. Discussed with the nurse. Ms. updated me on the situation. He was transferred to the ICU with atrial fibrillation/atrial flutter with RVR but before amiodarone could be started, he converted back to sinus rhythm. His blood pressure was low. He is currently in the surgical suite undergoing surgery Plan to start IV amiodarone per protocol with bolus given over 1 hour, after he comes back from surgery IV amiodarone only for now for one day and reevaluate thereafter
[2018-08-28] MEDS ORDERED: VANCOMYCIN 1,250 MG in SODIUM CHLORIDE 0.9% 250 ML IVPB SCH (09:00)
[2018-08-28] MEDS ORDERED: NALOXONE 0.4 MG/ML 1 ML VIAL IV PRN (09:21)
[2018-08-28] MEDS: HYDROmorphone 0.5 MG/0.5 ML SYRINGE IVP PRN ×4 (09:34→18:46)
[2018-08-28] MEDS: SODIUM CHLORIDE 0.9% 1,000 ML IV SCH (09:49)
[2018-08-28] MEDS: ASPIRIN 325 MG TAB PO SCH ×2 (09:50→10:40)
[2018-08-28] MEDS: ENOXAPARIN 40 MG/0.4 ML SYRINGE SQ SCH (10:16)
[2018-08-28] MEDS: PANTOPRAZOLE 40 MG/10 ML VIAL IV SCH (10:16)
--- NOTE | 2018-08-28 10:25 | ECHOF ---
Referral Reason:Chest pain and cardiomyopathy MEASUREMENTS -------- HEIGHT: 180.3 cm WEIGHT: 72.1 kg BP: 103/56 Ao Diam: 3.3 cm (2.0 - 3.7) AV Cusp: 2.0 cm (1.5 - 2.6) LA Diam: 3.9 cm (2.7 - 3.8) MV E Josh: 0.93 m/s MV DecT: 216 ms MV A Josh: 0.37 m/s MV E/A Ratio: 2.50 RAP: 5.00 mmHg RVSP: 12.14 mmHg FINDINGS -------- Sinus rhythm. This was a technically difficult study with suboptimal views. Pt had surgery. Very limited views. S tudy taken from subcoastals. Study was technically difficult with lumason use. Can not estimate EF. RV Promident The left atrium is normal in size. The right atrium is normal in size. xx ml of Lumason was utilized for enhancement of images. The aortic valve was not well visualized. The mitral valve leaflets are mildly thickened. Mild mitral regurgitation is present. Mild tricuspid regurgitation present. The right ventricular systolic pressure, as measured by Doppl er, is 12.14mmHg. The pulmonic valve was not well visualized. The pericardium is normal. CONCLUSIONS -------- 1. Sinus rhythm. 2. This was a technically difficult study with suboptimal views. 3. Pt had surgery. Very limited views. Study taken from subcoastals. 4. Study was technically difficult with lumason use. Can not estimate EF. 5. RV Promident 6. The left atrium is normal in size. 7. The right atrium is normal in size. 8. xx ml of Lumason was utilized for enhancement of images. 9. The aortic valve was not well visualized. 10. The mitral valve leaflets are mildly thickened. 11. Mild mitral regurgitation is present. 12. Mild tricuspid regurgitation present. 13. The right ventricular systolic pressure, as measured by Doppler, is 12.14mmHg. 14. The pulmonic valve was not well visualized. 15. The pericardium is normal. LABEL CUTTER: Mary Vasquez [facility]
[2018-08-28 10:38] LABS: Mucus,Urine Few /hpf; RBC,Urine >182 /hpf (0-5)
[2018-08-28] MEDS: ATORVASTATIN 40 MG TAB PO SCH (10:40)
[2018-08-28] MEDS: SERTRALINE 25 MG TAB PO SCH (10:58)
[2018-08-28 11:03] LABS: Appearance,Urine Bloody (Clear); Color,Urine Red
--- NOTE | 2018-08-28 12:24 | CONS ---
CONSULTATION This is an 88-year-old patient who presented to the Emergency Department for an upper respiratory tract infection/sepsis. An 88-year-old male who was a patient that was transferred from [facility] for evaluation of pneumonia, weakness, elevated troponin, and bladder cancer. The patient apparently was found to have significant scrotal gangrene and today went to the operating room for a procedure. The patient's chest x-ray is likely consistent with either fluid overload and/or pneumonia. [place] was 26777, blood cultures thus far negative. Chest x-ray shows diffuse bilateral infiltrates. He was admitted on 08/26, came to the ICU on 08/27. Went to the operating room today. He is postop day #0. He is currently on vancomycin and Zosyn. He is not receiving any supplemental oxygen. His IV is 0.9 at 50. I just gave the nurse orders for Protonix for GI prophylaxis and Lovenox subcu 40 mg for DVT prophylaxis. HOME MEDICATIONS: Apparently included Neurontin, Claritin, Zoloft, Lipitor, iron, multivitamins, calcium carbonate, Flonase nasal spray, Haldol, and Fleet's enema. ALLERGIES: Include IVP DYE. MEDICAL HISTORY: Not well documented here, but includes apparently colon cancer, prostate cancer, previous radiation for his prostate cancer, neuropathy, pneumonia, AAA repair, and joint replacement. SOCIAL HISTORY: Positive for previous tobacco use. According to his medications, he also likely has underlying hyperlipidemia and environmental allergies. Also, depression is likely given his Zoloft. There is no documented family history. The patient just came back from the operating room and cannot give any history himself. He is still quite lethargic and sleepy. REVIEW OF SYSTEMS: Is unreliable at this time. He does complain of pain in the area of the surgical sites. Current vital signs are reviewed. His temperature is 98, heart rate is 74, respiratory rate 16 to 18 breaths per minute, blood pressure 96/52, mean 66, room air saturation 95% to 96%. Appears in no acute distress. Does complain of pain, is moaning a bit. No respiratory distress. No audible wheezing. No use of accessory muscles. No nasal flaring. HEENT examination is grossly unremarkable. No supplemental oxygen noted. Mucous membranes are dry. Neck is supple. Full range of motion. No adenopathy. Cardiovascular examination reveals regular rhythm and rate. Heart rate 75. S1, S2 normal. No murmur. Lungs are clear, breath sounds equal. There is no wheezes or rhonchi. Abdomen is soft. Extremities are intact. No cyanosis, clubbing, or edema. Skin without rash. Neurologic examination is difficult to evaluate. His most recent chest x-ray from today shows stable findings of patchy bilateral infiltrates which may relate to underlying pneumonia and/or fluid overload. I should point out that his N terminal proBNP is quite elevated at 18,000. Microbiologic studies including blood cultures are thus far negative. Labs include a white count of 11.5, hemoglobin 9.1, hematocrit 29.7, platelet count 345,000, Sodium 130, potassium 4.3, chloride 100, CO2 is 22, anion gap normal, BUN and creatinine were 28 and 0.91. Troponin was 0.196. ASSESSMENT: 1. Postoperative day number 0, status post scrotal exploration, extensive debridement of necrotic skin and subcutaneous tissue of scrotum, drainage of large abscess, placement of a Cleveland drain, and placement of an open suprapubic cystostomy. 2. History of prostate cancer, status post radiation. 3. History of urethral carcinoma of the prostatic urethra. 4. History of chronic indwelling Justin catheter. 5. Rule out Car's gangrenosis. 6. Elevated troponin, rule out myocardial ischemia. 7. Pneumonia versus heart failure based on the appearance of chest x-ray. 8. Rule out sepsis. 9. History of prostate cancer. 10.History of colon cancer. 11.History of neuropathy. 12.Status post abdominal aortic aneurysm repair. PLAN: The patient will get GI prophylaxis in the form of Protonix IV. The patient will get Lovenox 40 mg subcu daily for DVT prophylaxis. The patient is currently on vancomycin and Zosyn. Microbiologic studies are thus far negative. I have added some Dilaudid 0.5-1 mg IV every 2 hours for pain control. Additional recommendations and suggestions are forthcoming. The IV will be switched to 0.9 at 50 mL an hour. The patient's overall prognosis remains guarded. No additional recommendations are made. Will follow closely. MMODL / IJN: [id number] /
[2018-08-28 17:48] LABS: Hemoglobin A1C 5.9 % (4.0-6.0)
[2018-08-28] MEDS: HYDROmorphone 1 MG/ML 1 ML SYRINGE IVP PRN (21:53)
--- NOTE | 2018-08-28 22:22 | PN ---
PROGRESS NOTE DATE OF SERVICE: 08/28/2018 REASON FOR FOLLOWUP: Car's gangrene of scrotum. INTERVAL HISTORY: The patient was taken to the OR this morning. The patient is status post scrotal exploration with extensive debridement of necrotic skin and subcutaneous tissue and drainage of a large abscess with an open suprapubic cystotomy. The patient has been in the ICU and denies having any fever; did have some chills, though. No chest pain, shortness of breath or cough. No abdominal pain. Pain to the scrotal area is currently controlled with pain medications. PHYSICAL EXAMINATION: Blood pressure 105/53, pulse of 72, temperature 98. He is 96% on 2 L nasal cannula. General description is an elderly male lying in bed in no distress. RESPIRATORY SYSTEM: Unlabored breathing. Clear to auscultation anteriorly. HEART: S1, S2. Regular rate and rhythm. ABDOMEN: Soft. No tenderness. No guarding or rigidity. EXTREMITIES: No edema of the feet. LABS: Hemoglobin 9.1, white count 11.5. BUN of 28, creatinine 0.91. Culture is currently pending. Blood culture negative so far. DIAGNOSTIC IMPRESSION AND PLAN: Patient admitted to hospital with sepsis, source being the Car's gangrene, status post extensive debridement this morning. Patient is currently broadly covered with vancomycin and Zosyn. That will be continued while watching his kidney function very closely. Continue with gentle IV fluid. Overall prognosis remains guarded. MMODL / IJN: [id number] /
--- NOTE | 2018-08-28 22:50 | P.PN ---
Subjective Progress Note Date: 08/28/18 Principal diagnosis: Scrotal gangrene Patient is a 88-year-old male with a known history of prostate cancer, urothelial cancer and chronic indwelling catheter presented to [facility] [place] initially from [facility] home with complaints of generalized weakness and scrotal swelling for past 1 week. Patient was found have elevated troponin level and was eventually transferred to [facility]. There was also concern for pneumonia at the time. Patient was having dark discoloration and swelling of the scrotal area for the past 1 week. Patient does have pain somewhat. Otherwise patient denied any complaints of chest pain. Mild shortness of breath. Chest x-ray showed atelectasis and possible vascular congestion. Patient was found have necrotic scrotum. Patient was seen by urology and is planning for OR in the afternoon. Patient is on broad-spectrum antibiotics currently. Cardiology and ID was consulted as well. Chest x-ray showed persistent but improving features of congestive heart failure. Underlying infiltrate of other etiology not excluded. Correlate clinically and progress studies are recommended. 08/28/2018 Currently patient came back from operating room for debridement. Yesterday evening patient went into atrial flutter and was transferred to intensive care unit. Patient was started on amiodarone drip. Otherwise no fever no chills. Continued on IV antibiotics of Zosyn and vancomycin as per ID recommendations. Leukocytosis is improving. No other acute overnight issues. Currently maintaining sinus rhythm. 2-D echocardiogram was done. Active Medications Generic Name Dose Route Start Last Admin Trade Name Freq PRN Reason Stop Dose Admin Acetaminophen 500 mg 08/27/18 01:56 08/28/18 04:43 Tylenol Tab PO 500 mg Q4HR PRN Administration Fever and/ or Pain Albuterol/Ipratropium 3 ml 08/27/18 08:00 08/28/18 20:11 Duoneb 0.5 Mg-3 Mg/3 Ml Soln INHALATION 3 ml RT-QID SRIKANTH Administration Aspirin 325 mg 08/27/18 09:00 08/28/18 10:40 Aspirin PO 325 mg DAILY SRIKANTH Administration Atorvastatin Calcium 40 mg 08/28/18 09:00 08/28/18 10:40 Lipitor PO 40 mg DAILY SRIKANTH Administration Enoxaparin Sodium 40 mg 08/28/18 09:30 08/28/18 10:16 Lovenox SQ 40 mg DAILY SRIKANTH Administration Hydromorphone HCl 0.5 mg 08/28/18 09:16 08/28/18 18:46 Dilaudid IVP 0.5 mg Q2H PRN Administration Pain Control Hydromorphone HCl 1 mg 08/28/18 09:16 08/28/18 21:53 Dilaudid IVP 1 mg Q2H PRN Administration Pain Piperacillin Sod/Tazobactam 100 mls @ 25 mls/hr 08/27/18 01:00 08/28/18 17:32 Sod 3.375 gm/ Sodium Chloride IVPB 25 mls/hr Q8H SRIKANTH Administration Sodium Chloride 1,000 mls @ 50 mls/hr 08/28/18 09:30 08/28/18 09:49 Saline 0.9% IV 50 mls/hr .Q20H SRIKANTH Administration Vancomycin HCl 1,250 mg/ 250 mls @ 125 mls/hr 08/29/18 05:00 Sodium Chloride IVPB Q16H SRIKANTH Miscellaneous Information 1 each 08/26/18 22:59 Pneumonia Protocol Utilized PO ONCE PRN Per Protocol Naloxone HCl 0.2 mg 08/28/18 09:21 Narcan IV Q2M PRN Opioid Reversal Nitroglycerin 0.4 mg 08/26/18 22:59 Nitrostat SUBLINGUAL Q5M PRN Chest Pain Pantoprazole Sodium 40 mg 08/28/18 09:30 08/28/18 10:16 Protonix IV 40 mg DAILY SRIKANTH Administration Sertraline HCl 25 mg 08/28/18 09:00 08/28/18 10:58 Zoloft PO 25 mg DAILY SRIKANTH Administration Objective - Vital Signs Vital signs: Vital Signs Temp 98.0 F 08/28/18 12:00 Pulse 73 08/28/18 14:00 Resp 22 08/28/18 14:00 BP 86/41 08/28/18 14:00 Pulse Ox 91 L 08/28/18 14:00 Intake & Output 08/27/18 08/28/18 08/28/18 18:59 06:59 18:59 Intake Total 100 1430 950 Output Total 1190 260 Balance 100 240 690 Weight 70.2 kg 70.2 kg Intake: IV 1430 950 Piperacillin-Tazobactam 3 100 100 .375 gm In Sodium Chloride 0.9% 100 ml @ 25 mls/hr IVPB Q8H SRIKANTH Rx#: [id number] Sodium Chloride 0.9% 1, 80 000 ml @ 20 mls/hr IV . Q24H SRIKANTH Rx#:[id number] Sodium Chloride 0.9% 1, 300 000 ml @ 50 mls/hr IV . Q20H SRIKANTH Rx#:[id number] Vancomycin 1,250 mg In 250 250 Sodium Chloride 0.9% 250 ml @ 125 mls/hr IVPB Q24HR SRIKANTH Rx#:[id number] Oral 100 0 Output: Urine 1190 160 Estimated Blood Loss 100 Other: Voiding Method Indwelling Catheter Indwelling Catheter Indwelling Catheter # Voids 0 - Exam PHYSICAL EXAMINATION: Patient is lying in the bed comfortably, no acute distress, awake alert and oriented. Seems lethargic. HEENT: Normocephalic. Neck is supple. Pupils reactive. Nostrils clear. Oral cavity is moist. Ears reveal no drainage. Neck reveals no JVD, carotid bruits, or thyromegaly. CHEST EXAMINATION: Trachea is central. Symmetrical expansion. Bibasilar diminished air entry. Lung delaney clear to auscultation and percussion. CARDIAC: Normal S1, S2 with no gallops. No murmurs ABDOMEN: Soft. Bowel sounds normal. No organomegaly. No abdominal bruits. Extremities: reveal no edema. No clubbing or cyanosis Neurologically awake, alert, oriented x3 with well-coordinated movements. No focal deficits noted Skin: No rash or skin lesions. Scrotal area is bandaged. Post surgery.. Psychiatric: Coperative. Nonsuicidal Musculoskeletal: No joint swelling or deformity. Normal range of motion. - Labs CBC & Chem 7: 08/28/18 04:01 08/28/18 04:01 Labs: Abnormal Lab Results - Last 24 Hours (Table) 08/27/18 08/28/18 08/28/18 Range/Units 19:50 04:01 04:01 WBC 11.5 H (3.8-10.6) k/uL RBC 3.29 L (4.30-5.90) m/uL Hgb 9.1 L (13.0-17.5) gm/dL Hct 29.7 L (39.0-53.0) % MCHC 30.7 L (31.0-37.0) g/dL RDW 16.0 H (11.5-15.5) % Neutrophils # 10.4 H (1.3-7.7) k/uL Lymphocytes # 0.6 L (1.0-4.8) k/uL Sodium 130 L (137-145) mmol/L BUN 28 H (9-20) mg/dL POC Glucose (mg/dL) 105 H (75-99) mg/dL Calcium 8.1 L (8.4-10.2) mg/dL ALT 13 L (21-72) U/L Total Protein 5.7 L (6.3-8.2) g/dL Albumin 2.0 L (3.5-5.0) g/dL Urine RBC (0-5) /hpf Urine WBC (0-5) /hpf Urine Mucus (None) /hpf 08/28/18 Range/Units 09:45 WBC (3.8-10.6) k/uL RBC (4.30-5.90) m/uL Hgb (13.0-17.5) gm/dL Hct (39.0-53.0) % MCHC (31.0-37.0) g/dL RDW (11.5-15.5) % Neutrophils # (1.3-7.7) k/uL Lymphocytes # (1.0-4.8) k/uL Sodium (137-145) mmol/L BUN (9-20) mg/dL POC Glucose (mg/dL) (75-99) mg/dL Calcium (8.4-10.2) mg/dL ALT (21-72) U/L Total Protein (6.3-8.2) g/dL Albumin (3.5-5.0) g/dL Urine RBC >182 H (0-5) /hpf Urine WBC >182 H (0-5) /hpf Urine Mucus Few H (None) /hpf Microbiology - Last 24 Hours (Table) 08/27/18 01:10 Blood Culture - Preliminary Blood No Growth after 24 hours 08/27/18 01:03 Blood Culture - Preliminary Blood No Growth after 24 hours Assessment and Plan Assessment: Sepsis secondary to scrotal gangrene. Status post debridement on 08/28/2018. Atrial flutter/atrial fibrillation. Spontaneously converted to sinus rhythm. Elevated troponin level. Likely demand ischemia unlikely ACS at this time Lactic acidosis. Improved Pulmonary vascular congestion with possible pneumonia Chronic normocytic anemia History of prostate cancer and urothelial involvement. Chronic indwelling Justin catheter. Last exchange 5 days back Peripheral neuropathy. Nondiabetic History of AAA repair History of smoking DVT prophylaxis. Patient will be continued on broad-spectrum antibiotics in the form of vancomycin and Zosyn. Continue with IV hydration and monitor respiratory status. Patient is status post debridement. Follow-up culture sent and pathology report.. Continue the telemetry monitoring and serial EKGs and troponins. Follow up closely and further recommendations based on the clinical course. Prognosis is guarded this time. Time with Patient: Greater than 30
[2018-08-29] MEDS: PIPERACILLIN-TAZOBACTAM 3.375 GM in SODIUM CHLORIDE 0.9% 100 ML IVPB SCH ×3 (00:29→17:43)
[2018-08-29] MEDS: HYDROmorphone 1 MG/ML 1 ML SYRINGE IVP PRN ×2 (04:27→10:35)
[2018-08-29] MEDS: VANCOMYCIN 1,250 MG in SODIUM CHLORIDE 0.9% 250 ML IVPB SCH ×2 (04:31→20:37)
[2018-08-29 05:35] LABS: Anisocytosis Slight; Basophils % (A) 0 %; Eosinophils % (A) 1 %; HCT 27.5 % (39.0-53.0); HGB 8.3 gm/dL (13.0-17.5); Hypochromasia Marked; Lymphocytes # (A) 0.7 k/uL (1.0-4.8); Lymphocytes % (A) 9 %; MCH 27.5 pg (25.0-35.0); MCHC 30.2 g/dL (31.0-37.0); MCV 91.2 fL (80.0-100.0); Mean Platelet Volume 7.3; Monocytes # (A) 0.2 k/uL (0-1.0); Monocytes % (A) 2 %; Neutrophils # (A) 6.8 k/uL (1.3-7.7); Neutrophils % (A) 86 %; Platelet Count 251 k/uL (150-450); RBC 3.02 m/uL (4.30-5.90); WBC 7.9 k/uL (3.8-10.6)
[2018-08-29 06:02] LABS: Calcium 7.7 mg/dL (8.4-10.2); Phosphorus 3.1 mg/dL (2.5-4.5)
--- NOTE | 2018-08-29 07:11 | XR ---
EXAMINATION TYPE: XR chest 1V DATE OF EXAM: 08/29/2018 HISTORY: Shortness of breath. COMPARISON: 08/28/2018 TECHNIQUE: Single view of the chest is submitted. FINDINGS: Demonstrated are scattered senescent parenchymal change. There is stable left lower lobe infiltrate and/or atelectasis. Small effusion noted. Continued pulmon piotr venous congestion The heart is stable. Hilar and mediastinal structures are within normal limits. Degenerative changes are seen of the dorsal spine. IMPRESSION: 1. There is stable left lower lobe infiltrate and/or atelectasis. Small effusion noted. Continued pu lmonary venous congestion
[2018-08-29] MEDS ORDERED: AMIODARONE 450 MG in DEXTROSE 5% IN WATER 250 ML IV SCH ×2 (08:15)
--- NOTE | 2018-08-29 08:19 | P.PN ---
Progress Note - Text Progress Note Date: 08/29/18 The patient is afebrile and hemodynamically stable. He is alert and says he has moderate pain. He is thirsty but not hungry. O2 sats are good. Urine draining through both catheters has cleared and is grossly free of blood. WBC is 7,900. BUN/Cr is improved at 25/0.85. PE: Scrotal edema is less. There is no necrotic skin and there appears to be minimal devitalized tissue covering the testicles. Imp: Necrotizing faciitis of scrotum-improved. Will continue dressing changes bid-tid. I may still need to debride some tissue later this week but this may be able to be done at the bedside.
[2018-08-29] MEDS: PANTOPRAZOLE 40 MG/10 ML VIAL IV SCH (08:20)
[2018-08-29] MEDS: ENOXAPARIN 40 MG/0.4 ML SYRINGE SQ SCH (08:20)
[2018-08-29] MEDS: HYDROmorphone 0.5 MG/0.5 ML SYRINGE IVP PRN ×4 (08:24→20:36)
[2018-08-29] MEDS: ASPIRIN 325 MG TAB PO SCH ×2 (08:27→09:03)
[2018-08-29] MEDS: ATORVASTATIN 40 MG TAB PO SCH ×2 (08:27→09:03)
[2018-08-29] MEDS: SERTRALINE 25 MG TAB PO SCH ×2 (08:28→11:36)
[2018-08-29] MEDS: SODIUM CHLORIDE 0.9% 1,000 ML IV SCH (09:10)
[2018-08-29] MEDS: IPRATROPIUM-ALBUTEROL 3 ML NEB INHALATION SCH ×4 (09:26→19:09)
--- NOTE | 2018-08-29 09:47 | PN ---
PROGRESS NOTE This is an 88-year-old patient who presented to the Emergency Department for upper respiratory tract infection/sepsis. The patient was transferred from [facility] for evaluation of pneumonia, weakness and elevated troponins as well as bladder cancer. The patient was found to have significant scrotal gangrene and today is postop day #1, status post scrotal exploration, extensive debridement of necrotic skin, and subcutaneous tissue of scrotum, drainage of large abscess, placement of the Davin drain and placement of an open suprapubic cystostomy. The patient is doing about the same. Currently on O2 at 2 L. His IV is a 0.9 at 50. Because of atrial fibrillation, the patient is on Cordarone drip 0.5 mg/minute. He is postop day #1. The patient currently is receiving vancomycin and Zosyn. His chest x-ray is consistent with fluid overload/CHF as well as possible left lower lobe pneumonia. Microbiologic studies are thus far all negative. The patient is a NO CODE patient. Current vital signs are reviewed. Temperature 98.5, heart rate 70, respiratory rate 19, blood pressure 104/53, mean 72, saturation 95%. Appears in no acute distress. HEENT examination is grossly unremarkable. Mucous membranes are moist. Nasal O2 is in place at 2 L/minute. Neck is supple. Full range of motion. No adenopathy or thyromegaly. Neck veins are flat. Cardiovascular examination reveals regular rhythm and rate. Heart rate is 70. S1, S2 normal. No murmur. Heart sounds distant. Lungs reveal a relatively clear breath sounds. He does not take deep breaths. A few scattered mild rhonchi. No wheezes or crackles. Abdomen is soft. Bowel sounds are heard. Extremities are intact. No cyanosis, clubbing, or edema. Skin without rash. Neurologic examination is difficult to assess, but he does move all 4 extremities. CURRENT LABORATORY DATA: Reviewed. White count is down from 11.5 to 7.9, hemoglobin 8.3, hematocrit 27.5, platelet count 351,000, sodium 132, potassium 4.0, chloride is 103, CO2 is 23, BUN and creatinine were 25 and 0.85. His urine has more than 182 RBCs and more than 182 WBCs. Again microbiologic studies are negative. Chest x-ray is reviewed. It does show left lower lobe infiltrate. There is a small effusion. There is no evidence of pulmonary vascular congestion. ASSESSMENT: 1. Postoperative day #1, status post scrotal exploration, excessive debridement of necrotic skin and subcutaneous tissue of scrotum, drainage of large abscess, placement of a Davin drain and placement of a open suprapubic cystostomy because of scrotal gangrene. 2. History of prostate cancer, status post radiation. 3. History of urethral carcinoma of the prostatic urethra. 4. History of atrial fibrillation with RVR. 5. History of chronic indwelling Justin catheter. 6. History of Car's gangrenosis. 7. Elevated troponins, rule out myocardial ischemia. 8. Pneumonia versus heart failure based on the appearance of chest x-ray. 9. Possible sepsis. 10.History of prostate cancer. 11.History of colon cancer. 12.Neuropathy. 13.Status post abdominal aneurysm repair. PLAN: The patient got GI prophylaxis and DVT prophylaxis yesterday in the form of IV Protonix and subcu Lovenox. The patient remains on vancomycin and Zosyn. Microbiologic studies are thus far negative. We added Dilaudid for pain control. Overall, the patient is doing better. He is currently on amiodarone for atrial fibrillation. Will continue to follow. He is a DNR. Prognosis is guarded. MMODL / IJN: [id number] /
--- NOTE | 2018-08-29 11:37 | P.PN ---
Progress Note - Text Patient is resting comfortably in bed. Mucosa are dry. He is not short of breath. He is in sinus rhythm with PVCs. I reviewed his twelve-lead ECG at the time of his transfer to the ICU 2 days back and he was in atrial flutter/ atrial tachycardia with RVR. The atrial electrograms are consistent with atrial flutter with a ventricular rate is in the 170s At this time is in sinus rhythm he is on IV amiodarone and I spoke to the nurse and advised to continue IV amiodarone at 1 mg/m complete the infusion but no by mouth meds thereafter unless he has a recurrence of the tachycardia He is currently nothing by mouth because he is undergone abdominal surgery Blood pressures in the low end of normal and sometimes in the 90s and therefore I'm not starting her on any beta blockers for now Blood pressure 93/43 mmHg respirations 18 pulse rate in the 60s with Breath sounds are reduced bilaterally Heart sounds are irregular on account of the premature beats Abdomen is soft Impression Atrial tachycardia with RVR and symptomatic but self terminating before IV amiodarone was started Suggest Complete IV amiodarone infusion. Do not start any oral amiodarone thereafter. I will reevaluate need for long-term amiodarone Once he is able to eat and his blood pressure is better I will try starting him on some AV node blocking drugs
--- NOTE | 2018-08-29 21:44 | PN ---
PROGRESS NOTE DATE OF SERVICE: 08/29/2018 REASON FOR FOLLOWUP: Car's gangrene. INTERVAL HISTORY: The patient is currently afebrile, hemodynamically borderline. The patient remains lethargic and sleepy. No nausea, vomiting or abdominal pain. Still has some serous drainage from his incision, per the nursing staff. PHYSICAL EXAMINATION: Blood pressure is 92/43, pulse of 65, temperature of 98. He is 96% on 2 L nasal cannula. General description is an elderly male lying in bed in no distress. RESPIRATORY SYSTEM: Unlabored breathing. Clear to auscultation anteriorly. HEART: S1, S2. Regular rate and rhythm. ABDOMEN: Soft. No tenderness. Wound is currently dressed up. No obvious drainage on the dressing. LABS: Hemoglobin 8.3, white count of 7.9, BUN of 25, creatinine 0.85. The wound culture is currently showing a gram-negative bacilli. DIAGNOSTIC IMPRESSION AND PLAN: Patient with Car's gangrene, status post extensive surgical debridement. The patient is covered with Zosyn. That will be continued while waiting for the culture to finalize. Continue Zosyn, IV fluid. Overall prognosis remains guarded. Continue supportive care. MMODL / IJN: [id number] /
--- NOTE | 2018-08-29 23:52 | P.PN ---
Subjective Progress Note Date: 08/29/18 Principal diagnosis: Scrotal gangrene Patient is a 88-year-old male with a known history of prostate cancer, urothelial cancer and chronic indwelling catheter presented to [facility] initially from [facility] home with complaints of generalized weakness and scrotal swelling for past 1 week. Patient was found have elevated troponin level and was eventually transferred to [facility]. There was also concern for pneumonia at the time. Patient was having dark discoloration and swelling of the scrotal area for the past 1 week. Patient does have pain somewhat. Otherwise patient denied any complaints of chest pain. Mild shortness of breath. Chest x-ray showed atelectasis and possible vascular congestion. Patient was found have necrotic scrotum. Patient was seen by urology and is planning for OR in the afternoon. Patient is on broad-spectrum antibiotics currently. Cardiology and ID was consulted as well. Chest x-ray showed persistent but improving features of congestive heart failure. Underlying infiltrate of other etiology not excluded. Correlate clinically and progress studies are recommended. 08/28/2018 Currently patient came back from operating room for debridement. Yesterday evening patient went into atrial flutter and was transferred to intensive care unit. Patient was started on amiodarone drip. Otherwise no fever no chills. Continued on IV antibiotics of Zosyn and vancomycin as per ID recommendations. Leukocytosis is improving. No other acute overnight issues. Currently maintaining sinus rhythm. 2-D echocardiogram was done. 08/29/2018 Patient is more awake and oriented today. Denied any complaints of chest pain or shortness of breath. Currently maintaining sinus rhythm. Heart rate is controlled. Wound culture showed gram-negative bacilli. Leukocytosis is trending down. Patient is being continued on antibiotics in the form of vancomycin and Zosyn. Patient is being continued on amiodarone drip until completion as per cardiology. No fever no chills. Pain is controlled otherwise. Chest x-ray showed stable left lower lobe infiltrate/atelectasis. Current medications reviewed. Active Medications Generic Name Dose Route Start Last Admin Trade Name Freq PRN Reason Stop Dose Admin Acetaminophen 500 mg 08/27/18 01:56 08/28/18 04:43 Tylenol Tab PO 500 mg Q4HR PRN Administration Fever and/ or Pain Albuterol/Ipratropium 3 ml 08/27/18 08:00 08/29/18 19:09 Duoneb 0.5 Mg-3 Mg/3 Ml Soln INHALATION 3 ml RT-QID SRIKANTH Administration Aspirin 325 mg 08/27/18 09:00 08/29/18 09:03 Aspirin PO Not Given DAILY [facility] Atorvastatin Calcium 40 mg 08/28/18 09:00 08/29/18 09:03 Lipitor PO Not Given DAILY [facility] Enoxaparin Sodium 40 mg 08/28/18 09:30 08/29/18 08:20 Lovenox SQ 40 mg DAILY SRIKANTH Administration Hydromorphone HCl 0.5 mg 08/28/18 09:16 08/29/18 20:36 Dilaudid IVP 0.5 mg Q2H PRN Administration Pain Control Hydromorphone HCl 1 mg 08/28/18 09:16 08/29/18 10:35 Dilaudid IVP 1 mg Q2H PRN Administration Pain Piperacillin Sod/Tazobactam 100 mls @ 25 mls/hr 08/27/18 01:00 08/29/18 17:43 Sod 3.375 gm/ Sodium Chloride IVPB 25 mls/hr Q8H SRIKANTH Administration Sodium Chloride 1,000 mls @ 50 mls/hr 08/28/18 09:30 08/29/18 09:10 Saline 0.9% IV 50 mls/hr .Q20H SRIKANTH Administration Vancomycin HCl 1,250 mg/ 250 mls @ 125 mls/hr 08/29/18 05:00 08/29/18 20:37 Sodium Chloride IVPB 125 mls/hr Q16H SRIKANTH Administration Miscellaneous Information 1 each 08/26/18 22:59 Pneumonia Protocol Utilized PO ONCE PRN Per Protocol Naloxone HCl 0.2 mg 08/28/18 09:21 Narcan IV Q2M PRN Opioid Reversal Nitroglycerin 0.4 mg 08/26/18 22:59 Nitrostat SUBLINGUAL Q5M PRN Chest Pain Pantoprazole Sodium 40 mg 08/28/18 09:30 08/29/18 08:20 Protonix IV 40 mg DAILY [facility] Administration Sertraline HCl 25 mg 08/28/18 09:00 08/29/18 11:36 Zoloft PO Not Given DAILY [facility] Objective - Vital Signs Vital signs: Vital Signs Temp 98.9 F 08/29/18 20:00 Pulse 65 08/29/18 22:00 Resp 20 08/29/18 22:00 BP 98/45 08/29/18 22:00 Pulse Ox 91 L 08/29/18 22:00 Intake & Output 08/29/18 08/29/18 08/30/18 06:59 18:59 06:59 Intake Total 850 812.495 50 Output Total 455 415 Balance 395 397.495 50 Weight 74.2 kg Intake: IV 850 800 50 Piperacillin-Tazobactam 3 200 .375 gm In Sodium Chloride 0.9% 100 ml @ 25 mls/hr IVPB Q8H SRIKANTH Rx#: [id number] Sodium Chloride 0.9% 1, 600 600 50 000 ml @ 50 mls/hr IV . Q20H SRIKANTH Rx#:[id number] Vancomycin 1,250 mg In 250 Sodium Chloride 0.9% 250 ml @ 125 mls/hr IVPB Q24HR SRIKANTH Rx#:[id number] Intake, IV Titration 12.495 Amount Amiodarone 450 mg In 12.495 Dextrose 5% in Water 250 ml @ 1 MG/MIN 33.33 mls/ hr IV .Q7H31M SRIKANTH Rx#: [id number] Output: Urine 455 415 Other: Voiding Method Indwelling Catheter Indwelling Catheter - Exam PHYSICAL EXAMINATION: Patient is lying in the bed comfortably, no acute distress, awake alert and oriented. Seems lethargic. HEENT: Normocephalic. Neck is supple. Pupils reactive. Nostrils clear. Oral cavity is moist. Ears reveal no drainage. Neck reveals no JVD, carotid bruits, or thyromegaly. CHEST EXAMINATION: Trachea is central. Symmetrical expansion. Bibasilar diminished air entry. Lung delaney clear to auscultation and percussion. CARDIAC: Normal S1, S2 with no gallops. No murmurs ABDOMEN: Soft. Bowel sounds normal. No organomegaly. No abdominal bruits. Extremities: reveal no edema. No clubbing or cyanosis Neurologically awake, alert, oriented x3 with well-coordinated movements. No focal deficits noted Skin: No rash or skin lesions. Scrotal area is bandaged. Post surgery.. Psychiatric: Coperative. Nonsuicidal Musculoskeletal: No joint swelling or deformity. Normal range of motion. - Labs CBC & Chem 7: 08/29/18 04:27 08/29/18 04:27 Labs: Abnormal Lab Results - Last 24 Hours (Table) 08/29/18 08/29/18 Range/Units 04:27 04:27 RBC 3.02 L (4.30-5.90) m/uL Hgb 8.3 L (13.0-17.5) gm/dL Hct 27.5 L (39.0-53.0) % MCHC 30.2 L (31.0-37.0) g/dL RDW 16.0 H (11.5-15.5) % Lymphocytes # 0.7 L (1.0-4.8) k/uL Sodium 132 L (137-145) mmol/L BUN 25 H (9-20) mg/dL Calcium 7.7 L (8.4-10.2) mg/dL Microbiology - Last 24 Hours (Table) 08/28/18 09:45 Urine Culture - Final Urine,Voided 08/28/18 07:43 Gram Stain - Preliminary Other - Other Wound Culture - Preliminary Gram Neg Bacilli 08/28/18 07:43 Gram Stain - Preliminary Other - Other Wound Culture - Preliminary Gram Neg Bacilli 08/27/18 01:10 Blood Culture - Preliminary Blood No Growth after 48 hours 08/27/18 01:03 Blood Culture - Preliminary Blood No Growth after 48 hours Assessment and Plan Assessment: 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 Status post debridement on 08/28/2018. Atrial tachycardia/flutter. Spontaneously converted to sinus rhythm. Elevated troponin level. Likely demand ischemia unlikely ACS at this time Lactic acidosis. Improved Pulmonary vascular congestion with possible pneumonia Chronic normocytic anemia History of prostate cancer and urothelial involvement. Chronic indwelling Justin catheter. Last exchange 5 days back Peripheral neuropathy. Nondiabetic History of AAA repair History of smoking DVT prophylaxis. Patient will be continued on broad-spectrum antibiotics in the form of vancomycin and Zosyn. Wound cultures are growing gram-negative bacilli. ID is following. Currently nothing by mouth. Continue with IV hydration and monitor respiratory status. Patient is status post debridement. Follow-up culture sent and pathology report.. Continue the telemetry monitoring and serial EKGs and troponins. Follow up closely and further recommendations based on the clinical course. Prognosis is guarded this time. Time with Patient: Greater than 30
[2018-08-30] MEDS: HYDROmorphone 1 MG/ML 1 ML SYRINGE IVP PRN ×5 (00:55→19:57)
[2018-08-30] MEDS: PIPERACILLIN-TAZOBACTAM 3.375 GM in SODIUM CHLORIDE 0.9% 100 ML IVPB SCH ×3 (00:55→17:08)
[2018-08-30] MEDS: SODIUM CHLORIDE 0.9% 1,000 ML IV SCH (05:07)
[2018-08-30 05:23] LABS: Anisocytosis Slight; Basophils % (A) 0 %; Eosinophils # (A) 0.1 k/uL (0-0.7); Eosinophils % (A) 1 %; HCT 26.6 % (39.0-53.0); Hypochromasia Marked; Lymphocytes # (A) 0.8 k/uL (1.0-4.8); Lymphocytes % (A) 8 %; MCH 27.5 pg (25.0-35.0); MCHC 29.9 g/dL (31.0-37.0); MCV 91.8 fL (80.0-100.0); Mean Platelet Volume 7.1; Monocytes # (A) 0.4 k/uL (0-1.0); Monocytes % (A) 4 %; Neutrophils # (A) 8.4 k/uL (1.3-7.7); Neutrophils % (A) 85 %; Platelet Count 247 k/uL (150-450); RDW 16.2 % (11.5-15.5); WBC 9.8 k/uL (3.8-10.6)
[2018-08-30 05:41] LABS: Anion Gap 5 mmol/L; Blood Urea Nitrogen 20 mg/dL (9-20); Calcium 7.5 mg/dL (8.4-10.2); Carbon Dioxide 23 mmol/L (22-30); Chloride 106 mmol/L (98-107); Glucose 92 mg/dL (74-99); Magnesium 2.1 mg/dL (1.6-2.3); Phosphorus 3.3 mg/dL (2.5-4.5); Potassium 3.8 mmol/L (3.5-5.1); Sodium 134 mmol/L (137-145)
[2018-08-30] MEDS ORDERED: Potassium Replacement Protocol 1 EACH MISC MISCELLANE PRN (06:10)
[2018-08-30] MEDS: IPRATROPIUM-ALBUTEROL 3 ML NEB INHALATION SCH ×4 (06:52→20:20)
[2018-08-30] MEDS: POTASSIUM CHLORIDE 10 MEQ in WATER FOR INJECTION 1 100ML.BAG IVPB SCH ×2 (07:42→08:41)
[2018-08-30] MEDS: PANTOPRAZOLE 40 MG/10 ML VIAL IV SCH (07:44)
[2018-08-30] MEDS: ENOXAPARIN 40 MG/0.4 ML SYRINGE SQ SCH (07:51)
--- NOTE | 2018-08-30 07:55 | XR ---
EXAMINATION TYPE: XR chest 1V DATE OF EXAM: 08/30/2018 COMPARISON: 08/29/2018 INDICATION: Short of breath TECHNIQUE: Single frontal view of the chest is obtained. FINDINGS: The heart size is normal. The pulmonary vasculature is prominent. There is patchy infiltrate present bilaterally. Consider pulmonary edema. Infectious etiology could b e within the differential. Continued follow-up is recommended. IMPRESSION: 1. Patchy bilateral infiltrates which are nonspecific. Correlate for pulmonary edema and infectious e tiologies. Continued follow-up is recommended.
[2018-08-30] MEDS: SERTRALINE 25 MG TAB PO SCH (10:40)
--- NOTE | 2018-08-30 10:48 | PN ---
PROGRESS NOTE DATE OF SERVICE: 08/30/2018 This is an 88-year-old patient with a history of recent upper respiratory tract infection/sepsis. He was transferred from [facility] for evaluation of pneumonia. He also had profound weakness and elevated troponins. He does have a history of bladder cancer, status post radiation therapy. He was found on examination to have significant scrotal gangrene and is postop day #2, status post scrotal exploration, extensive debridement of necrotic skin, and subcutaneous tissue as well as drainage of a large abscess, placement of a Floweree drain and placement of an open suprapubic cystostomy. The patient is now a DNR/hospice patient. He is receiving O2 at 2 L. He is getting a saline IV at 50 mL an hour. Chest x-ray shows some diffuse patchy infiltrates which could relate to either pneumonia or fluid. Blood cultures were positive for gram-negative rods. The patient is on vancomycin and Zosyn. He is currently a hospice patient as I mentioned. The patient could be transferred out of the ICU to the general medical floor. Vital signs are reviewed. Temperature 98.2, heart rate 71, respiratory rate 20, blood pressure 105/49, mean 67, 2 L saturation 97%. Appears in no acute distress. HEENT examination is grossly unremarkable. Mucous membranes are moist. No oral lesions. Neck is supple. Full range of motion. No adenopathy. Cardiovascular examination reveals regular rhythm and rate. Heart rate 71. S1, S2 normal. Heart sounds are distant. Lungs reveal a few scattered rhonchi. No wheezes or crackles. Breath sounds are equal. Abdomen is soft. Bowel sounds are heard. Extremities are intact. No cyanosis, clubbing, or edema. Skin without rash. Neurologic examination is difficult to assess. LAB DATA: Reviewed. White count 9.8, hemoglobin 8, hematocrit 26.6, platelet count 247,000. Sodium 134, potassium 3.8, chloride is 106, CO2 is 23, BUN and creatinine were 20 and 0.77. Microbiologic sample showed gram-negative bacilli in the wounds. They have not been identified as yet. Blood cultures are still negative. Urine is negative. Medications are reviewed. ASSESSMENT: 1. Postoperative day #2 status post scrotal exploration, excessive debridement of necrotic skin and subcutaneous tissue of scrotum, drainage of large abscess, placement of a Hector drain and placement of an open suprapubic cystostomy tube. 2. History of prostate cancer, status post radiation. 3. History of ureteral carcinoma of the prostatic urethra. 4. History of atrial fibrillation with RVR. 5. History of chronic indwelling Justin catheter. 6. Car's gangrenosis. 7. Elevated troponins, rule out myocardial ischemia. 8. Pneumonia versus heart failure based on the appearance of the patient's chest x- ray. 9. Possible sepsis. 10.History of prostate cancer next history of colon cancer. 11.Neuropathy. 12.Status post abdominal aneurysm repair. PLAN: Currently, the patient could be transferred out to the general medical floor. He is a DNR/hospice patient. He remains on antibiotics in form of vancomycin and Zosyn. Wound cultures are positive for gram-negative bacilli, yet to be identified. Hemodynamically, the patient is stable. Respiratory status is stable. No additional recommendations are made. Will continue to follow. Prognosis is poor. MMODL / IJN: [id number] /
[2018-08-30] MEDS: HYDROmorphone 0.5 MG/0.5 ML SYRINGE IVP PRN (11:00)
[2018-08-30] MEDS ORDERED: VANCOMYCIN TROUGH DUE 1 EACH MISC MISCELLANE ONE (12:00)
--- NOTE | 2018-08-30 12:19 | P.PN ---
Subjective Patient is resting comfortably in bed. When he wakes up he is quite agitated. From an arrhythmia standpoint he's had no further episodes of atrial tachycardia or atrial flutter. He is maintains sinus rhythm. Overall I see less PVCs today but I was examining him Afebrile Heart rate 7 the 60s and 70s Blood pressure 105/49 mmHg Breath sounds are reduced bilaterally with reduced inspiratory effort Heart sounds S1 and S2 are normal no murmurs or gallop Abdomen soft Extremities are warm, there is no edema Impression Atrial tachycardia with RVR that resolved spontaneously. He has received IV amiodarone for 2 days. I have not put him on oral amiodarone for now Plan Observation only for now. Please call if he has any episodes of atrial tachycardia. Once he is up and about ready for discharge anticoagulation may be considered for stroke prevention, bleeding risks must be considered Objective - Vital Signs Vital signs: Vital Signs Temp 97.8 F 08/30/18 12:00 Pulse 71 08/30/18 12:00 Resp 16 08/30/18 12:00 BP 105/59 08/30/18 12:00 Pulse Ox 97 08/30/18 12:00 Intake & Output 08/29/18 08/30/18 08/30/18 18:59 06:59 18:59 Intake Total 812.495 800 300 Output Total 415 510 80 Balance 397.495 290 220 Weight 75.7 kg 75.7 kg Intake: IV 800 800 300 Piperacillin-Tazobactam 3 200 100 100 .375 gm In Sodium Chloride 0.9% 100 ml @ 25 mls/hr IVPB Q8H SRIKANTH Rx#: [id number] Potassium Chloride 10 meq 100 In Water For Injection 1 100ml.bag @ 100 mls/hr IVPB Q1H SRIKANTH Rx#: [id number] Sodium Chloride 0.9% 1, 600 450 100 000 ml @ 50 mls/hr IV . Q20H SRIKANTH Rx#:[id number] Vancomycin 1,250 mg In 250 Sodium Chloride 0.9% 250 ml @ 125 mls/hr IVPB Q24HR SRIKANTH Rx#:[id number] Intake, IV Titration 12.495 Amount Amiodarone 450 mg In 12.495 Dextrose 5% in Water 250 ml @ 1 MG/MIN 33.33 mls/ hr IV .Q7H31M SRIKANTH Rx#: [id number] Output: Urine 415 510 80 Other: Voiding Method Indwelling Catheter Indwelling Catheter Indwelling Catheter # Voids 0 - Labs CBC & Chem 7: 08/30/18 04:07 08/30/18 04:07 Labs: Abnormal Lab Results - Last 24 Hours (Table) 08/30/18 08/30/18 Range/Units 04:07 04:07 RBC 2.90 L (4.30-5.90) m/uL Hgb 8.0 L (13.0-17.5) gm/dL Hct 26.6 L (39.0-53.0) % MCHC 29.9 L (31.0-37.0) g/dL RDW 16.2 H (11.5-15.5) % Neutrophils # 8.4 H (1.3-7.7) k/uL Lymphocytes # 0.8 L (1.0-4.8) k/uL Sodium 134 L (137-145) mmol/L Calcium 7.5 L (8.4-10.2) mg/dL Microbiology - Last 24 Hours (Table) 08/28/18 07:43 Anaerobic Culture - Final Scrotum 08/28/18 07:43 Anaerobic Culture - Final Scrotum 08/28/18 07:43 Gram Stain - Final Other - Other Wound Culture - Final Escherichia coli 08/27/18 01:10 Blood Culture - Preliminary Blood No Growth after 72 hours 08/27/18 01:03 Blood Culture - Preliminary Blood No Growth after 72 hours 08/28/18 09:45 Urine Culture - Final Urine,Voided 08/28/18 07:43 Gram Stain - Preliminary Other - Other Wound Culture - Preliminary Gram Neg Bacilli
[2018-08-30 14:25] LABS: Glucose,Whole Blood 86 mg/dL (75-99)
--- NOTE | 2018-08-30 15:41 | P.PN ---
Progress Note - Text Progress Note Date: 08/30/18 The patient is afebrile and remains hemodynamically stable. He is fairly comfortable unless his scrotal incision is examined and does have moderate discomfort in this region. He is thirsty and hungry but apparently failed a "swallow test" which increases his risk for aspiration. Urine is clear. There is minimal drainage from the suprapubic Hector. White blood count is 9800. Wound cultures are growing E. coli which is sensitive to Zosyn. Physical exam: There is some necrotic tissue along the left scrotal incision as well as some minimal necrotic tissue covering the testicles. The scrotal skin has only minimal edema and overall is improvement from yesterday. I believe the patient's biggest problem at the present time is his extremely poor nutritional status. If he is unable to tolerate an oral diet and then a PEG tube may need to be considered in the near future. I plan on debriding the scrotum tomorrow morning at the bedside.
--- NOTE | 2018-08-30 22:48 | PN ---
PROGRESS NOTE DATE OF SERVICE: 08/30/2018 REASON FOR FOLLOWUP: Car's gangrene, E coli. INTERVAL HISTORY: The patient is currently afebrile. He is hemodynamically stable, not requiring any pressor support. The patient remains weak, lethargic, unable to provide any history. Oral intake remains poor. No nausea, vomiting or diarrhea has been reported by the nursing staff. PHYSICAL EXAMINATION: Blood pressure is 93/43, pulse of 70, temperature of 98. He is 97% on 2 L nasal cannula. General description is an elderly male lying in bed in no distress. RESPIRATORY SYSTEM: Unlabored breathing. Clear to auscultation anteriorly. HEART: S1, S2. Regular rate and rhythm. ABDOMEN: Soft. No tenderness. SCROTAL AREA: Extensive debridement of the wound. No purulence was noticed, surrounding redness or foul-smelling drainage. LABS: Hemoglobin is 8 with white count 9.8, BUN of 20, creatinine 0.77. Wound culture with an E coli; no gram-positive has been seen. DIAGNOSTIC IMPRESSION AND PLAN: Patient with Car's gangrene in a patient who is status post extensive debridement of his scrotal skin and drainage of the abscess. Culture has been finalized with E coli. The patient is currently covered with Zosyn. That will be continued. Discontinue the vancomycin, as no gram-positive has been seen. The patient will likely need a PICC line for outpatient IV antibiotic therapy in view of his extensive infection. Son was present at the bedside. Questions were answered. MMODL / IJN: [id number] /
[2018-08-31] MEDS: HYDROmorphone 1 MG/ML 1 ML SYRINGE IVP PRN ×4 (01:21→22:57)
[2018-08-31] MEDS: PIPERACILLIN-TAZOBACTAM 3.375 GM in SODIUM CHLORIDE 0.9% 100 ML IVPB SCH ×3 (01:29→20:00)
[2018-08-31 05:04] LABS: Anisocytosis Slight; Basophils % (A) 0 %; Eosinophils # (A) 0.1 k/uL (0-0.7); Eosinophils % (A) 1 %; HCT 26.9 % (39.0-53.0); HGB 8.1 gm/dL (13.0-17.5); Hypochromasia Marked; Lymphocytes # (A) 0.9 k/uL (1.0-4.8); Lymphocytes % (A) 9 %; MCH 27.7 pg (25.0-35.0); MCV 92.6 fL (80.0-100.0); Monocytes # (A) 0.4 k/uL (0-1.0); Monocytes % (A) 4 %; Neutrophils # (A) 8.3 k/uL (1.3-7.7); Neutrophils % (A) 84 %; Platelet Count 245 k/uL (150-450); RBC 2.91 m/uL (4.30-5.90); RDW 16.3 % (11.5-15.5); WBC 9.9 k/uL (3.8-10.6)
[2018-08-31 05:43] LABS: Anion Gap 8 mmol/L; Blood Urea Nitrogen 17 mg/dL (9-20); Calcium 7.8 mg/dL (8.4-10.2); Carbon Dioxide 21 mmol/L (22-30); Chloride 110 mmol/L (98-107); Glucose 82 mg/dL (74-99); Magnesium 2.1 mg/dL (1.6-2.3); Potassium 4.2 mmol/L (3.5-5.1); Sodium 139 mmol/L (137-145)
[2018-08-31] MEDS: SERTRALINE 25 MG TAB PO SCH (07:39)
[2018-08-31] MEDS: IPRATROPIUM-ALBUTEROL 3 ML NEB INHALATION SCH ×4 (07:48→20:59)
[2018-08-31] MEDS: PANTOPRAZOLE 40 MG/10 ML VIAL IV SCH (08:13)
[2018-08-31] MEDS: ENOXAPARIN 40 MG/0.4 ML SYRINGE SQ SCH (08:13)
--- NOTE | 2018-08-31 09:18 | P.PN ---
Subjective Progress Note Date: 08/31/18 Principal diagnosis: Fourniere's gangrene, status post extensive surgical debridement This is a 88-year-old white male patient that was admitted to the hospital on as a transfer from [facility] for evaluation of pneumonia. Patient had profound weakness and elevated troponins. He has a history of bladder cancer, status post radiation therapy, he was found to have significant scrotal gangrene status post postop day 3 scrotal exploration, extensive debridement of necrotic tissue, and subcutaneous tissue, drainage of a large abscess, placement of a Hector drain and placement of an open suprapubic cystostomy. Today on 08/31/2018 patient seen in follow-up in the intensive care unit, he has been an overflow for general medical floor for last couple of days. He is resting in bed, he is having some moderate discomfort from his scrotal debridement sites. [place] any shortness of breath, he is on room air, pulse ox is 96%, hemodynamically he stable, afebrile. Patient is currently on Zosyn for antibiotic coverage, for evidence of E. coli in the wound cultures, which is sensitive to Zosyn. Anaerobic scrotal cultures were nondiagnostic, urine culture was negative. Patient had failed his swallow evaluation, he has been nothing by mouth for last 48 hours. Maintenance IV fluids is 0.9 normal saline at a rate of 50 ML per hour. Urology is following is planning on repeat debridement today. Labs have been reviewed, WBC is 9.9, hemoglobin is 8.1, sodium is 139, potassium is 4.2, chloride is 110, CO2 is 21, BUN 17 creatinine 0.74. Final pathology report of the scrotal debridement tissue was positive for gangrenous necrosis with ulcer, abscess and acute inflammation. No new chest x-rays today. Patient's son is at the bedside, family is considering hospice care. CODE STATUS is DO NOT RESUSCITATE. Patient's nutritional status has been poor in view of status nothing by mouth, patient may need PEG tube placement, or if the family decides to go with hospice, may allow oral pleasure feedings. Objective - Vital Signs Vital signs: Vital Signs Temp 98.0 F 08/30/18 20:00 Pulse 68 08/31/18 08:00 Resp 17 08/31/18 04:00 BP 107/46 08/31/18 02:00 Pulse Ox 96 08/31/18 02:00 Intake & Output 08/30/18 08/31/18 08/31/18 18:59 06:59 18:59 Intake Total 300 200 Output Total 300 535 Balance 0 -335 Weight 75.7 kg 73.2 kg Intake: IV 300 200 Piperacillin-Tazobactam 3 100 25 .375 gm In Sodium Chloride 0.9% 100 ml @ 25 mls/hr IVPB Q8H SRIKANTH Rx#: [id number] Potassium Chloride 10 meq 100 In Water For Injection 1 100ml.bag @ 100 mls/hr IVPB Q1H SRIKANTH Rx#: [id number] Sodium Chloride 0.9% 1, 100 175 000 ml @ 50 mls/hr IV . Q20H SRIKANTH Rx#:[id number] Output: Urine 300 535 Other: Voiding Method Indwelling Catheter Indwelling Catheter # Voids 0 0 - Exam GENERAL EXAM: 88-year-old frail looking cachectic white male in mild to moderate amount of incisional discomfort from his scrotal debridement php website developer: Normocephalic/atraumatic. EYES: Normal reaction of pupils, equal size. Conjunctiva pink, sclera white. NOSE: Clear with pink turbinates. THROAT: No erythema or exudates. NECK: No masses, no JVD, no thyroid enlargement, no adenopathy. CHEST: No chest wall deformity. Symmetrical expansion. LUNGS: Equal air entry with a few bibasilar rhonchi CVS: Regular rate and rhythm, normal S1 and S2, no gallops, no murmurs, no rubs ABDOMEN: Soft, nontender. No hepatosplenomegaly, normal bowel sounds, no guarding or rigidity. EXTREMITIES: No clubbing, no edema, no cyanosis, 2+ pulses and upper and lower extremities. MUSCULOSKELETAL: Muscle strength and tone normal. SPINE: No scoliosis or deformity SKIN: No rashes CENTRAL NERVOUS SYSTEM: Weak and lethargic, but opens his eyes to voice, oriented -1. No focal deficits, tone is normal in all 4 extremities. . - Labs CBC & Chem 7: 08/31/18 04:17 08/31/18 04:17 Labs: Abnormal Lab Results - Last 24 Hours (Table) 08/31/18 08/31/18 Range/Units 04:17 04:17 RBC 2.91 L (4.30-5.90) m/uL Hgb 8.1 L (13.0-17.5) gm/dL Hct 26.9 L (39.0-53.0) % MCHC 30.0 L (31.0-37.0) g/dL RDW 16.3 H (11.5-15.5) % Neutrophils # 8.3 H (1.3-7.7) k/uL Lymphocytes # 0.9 L (1.0-4.8) k/uL Chloride 110 H (98-107) mmol/L Carbon Dioxide 21 L (22-30) mmol/L Calcium 7.8 L (8.4-10.2) mg/dL Microbiology - Last 24 Hours (Table) 08/27/18 01:10 Blood Culture - Preliminary Blood No Growth after 96 hours 08/27/18 01:03 Blood Culture - Preliminary Blood No Growth after 96 hours 08/28/18 07:43 Gram Stain - Final Other - Other Wound Culture - Final Escherichia coli 08/28/18 07:43 Anaerobic Culture - Final Scrotum 08/28/18 07:43 Anaerobic Culture - Final Scrotum 08/28/18 07:43 Gram Stain - Final Other - Other Wound Culture - Final Escherichia coli Assessment and Plan Plan: Assessment: #1. Significant scrotal gangrene, status post scrotal exploration, extensive debridement of necrotic skin, subcutaneous tissue, drainage of a large abscess, placement of a Hector drain and placement of an open suprapubic cystostomy postop day 3 #2. E. coli scrotal wound infection, sensitive to Zosyn #3. History of prostate cancer, status post radiation #4. Difficulty swallowing, patient failed a swallow evaluation, high risk for aspiration #5. History of ureteral carcinoma of the prostate urethra #6. A. fib RVR on presentation, currently in sinus rhythm with PACs #7. Forniere's gangrenosis #8. Elevated troponins #9. Pneumonia versus heart failure based on appearance of the patient's chest x -ray and presentation #10. History of colon cancer #11. Abdominal aortic aneurysm, that is post surgical repair Plan: Family is considering hospice care. If they decide with hospice care will can allow pleasure oral feedings, otherwise patient will need a PEG tube placement. Continue current antibiotic treatment. ID service is following, vital signs are stable, patient is on room air, denies any shortness of breath or chest pain. Is having some moderate incisional discomfort in his scrotum. Continue with current pain medications. I performed a history & physical examination of the patient and discussed their management with my nurse practitioner, Padma Davila. I reviewed the nurse practitioner's note and agree with the documented findings and plan of care. Lung sounds are positive for a few scattered rhonchi. The findings and the impression was discussed with the patient. I attest to the documentation by the nurse practitioner. Time with Patient: Less than 30
--- NOTE | 2018-08-31 09:39 | P.PN ---
Progress Note - Text Progress Note Date: 08/31/18 The patient is afebrile and remains hemodynamically stable. He remains unable to eat due to concern for aspiration. He is alert and does have discomfort in the scrotal area with movement. I debrided some necrotic tissue overlying the right and left testicles and along the right and left skin edges. There does not appear to be any abscess which remains however it is likely that further debridement will be required in the next few days. I again discussed the patient's nutritional deficiency with one of his sons and believe that placement of a PEG tube should be considered.
[2018-08-31] MEDS: HYDROmorphone 0.5 MG/0.5 ML SYRINGE IVP PRN (10:04)
[2018-08-31] MEDS: SODIUM CHLORIDE 0.9% 1,000 ML IV SCH ×2 (16:09→21:19)
--- NOTE | 2018-08-31 22:18 | P.PN ---
Subjective Progress Note Date: 08/30/18 Principal diagnosis: Scrotal gangrene Patient is a 88-year-old male with a known history of prostate cancer, urothelial cancer and chronic indwelling catheter presented to [facility] initially from [facility] home with complaints of generalized weakness and scrotal swelling for past 1 week. Patient was found have elevated troponin level and was eventually transferred to [facility]. There was also concern for pneumonia at the time. Patient was having dark discoloration and swelling of the scrotal area for the past 1 week. Patient does have pain somewhat. Otherwise patient denied any complaints of chest pain. Mild shortness of breath. Chest x-ray showed atelectasis and possible vascular congestion. Patient was found have necrotic scrotum. Patient was seen by urology and is planning for OR in the afternoon. Patient is on broad-spectrum antibiotics currently. Cardiology and ID was consulted as well. Chest x-ray showed persistent but improving features of congestive heart failure. Underlying infiltrate of other etiology not excluded. Correlate clinically and progress studies are recommended. 08/28/2018 Currently patient came back from operating room for debridement. Yesterday evening patient went into atrial flutter and was transferred to intensive care unit. Patient was started on amiodarone drip. Otherwise no fever no chills. Continued on IV antibiotics of Zosyn and vancomycin as per ID recommendations. Leukocytosis is improving. No other acute overnight issues. Currently maintaining sinus rhythm. 2-D echocardiogram was done. 08/29/2018 Patient is more awake and oriented today. Denied any complaints of chest pain or shortness of breath. Currently maintaining sinus rhythm. Heart rate is controlled. Wound culture showed gram-negative bacilli. Leukocytosis is trending down. Patient is being continued on antibiotics in the form of vancomycin and Zosyn. Patient is being continued on amiodarone drip until completion as per cardiology. No fever no chills. Pain is controlled otherwise. Chest x-ray showed stable left lower lobe infiltrate/atelectasis. 08/30/2018 Patient is oriented but lethargic. Failed swallow evaluation and is currently nothing by mouth. Wound cultures are growing E. coli currently patient is on antibiotics in the form of Zosyn. Hemodynamically stable. Amiodarone drip has been discontinued. Patient is currently being maintaining sinus rhythm. Family is considering hospice care. No fever no chills. Patient is being transferred to medical floor from ICU. Current medications reviewed. Objective - Vital Signs Vital signs: Vital Signs Temp 98.0 F 08/30/18 20:00 Pulse 68 08/30/18 20:31 Resp 20 08/30/18 20:00 BP 93/43 08/30/18 20:00 Pulse Ox 97 08/30/18 20:20 Intake & Output 08/30/18 08/30/18 08/31/18 06:59 18:59 06:59 Intake Total 800 300 50 Output Total 510 300 200 Balance 290 0 -150 Weight 75.7 kg 75.7 kg Intake: IV 800 300 50 Piperacillin-Tazobactam 3 100 100 25 .375 gm In Sodium Chloride 0.9% 100 ml @ 25 mls/hr IVPB Q8H [facility] Rx#: [id number] Potassium Chloride 10 meq 100 In Water For Injection 1 100ml.bag @ 100 mls/hr IVPB Q1H [facility] Rx#: [id number] Sodium Chloride 0.9% 1, 450 100 25 000 ml @ 50 mls/hr IV . Q20H [facility] Rx#:[id number] Vancomycin 1,250 mg In 250 Sodium Chloride 0.9% 250 ml @ 125 mls/hr IVPB Q24HR [facility] Rx#:[id number] Output: Urine 510 300 200 Other: Voiding Method Indwelling Catheter Indwelling Catheter # Voids 0 0 0 - Exam PHYSICAL EXAMINATION: Patient is lying in the bed comfortably, no acute distress, awake alert and oriented. Seems lethargic. HEENT: Normocephalic. Neck is supple. Pupils reactive. Nostrils clear. Oral cavity is moist. Ears reveal no drainage. Neck reveals no JVD, carotid bruits, or thyromegaly. CHEST EXAMINATION: Trachea is central. Symmetrical expansion. Bibasilar diminished air entry. Lung delaney clear to auscultation and percussion. CARDIAC: Normal S1, S2 with no gallops. No murmurs ABDOMEN: Soft. Bowel sounds normal. No organomegaly. No abdominal bruits. Extremities: reveal no edema. No clubbing or cyanosis Neurologically awake, alert, oriented x2-3 with well-coordinated movements. No focal deficits noted Skin: No rash or skin lesions. Scrotal area is bandaged. Post surgery.. Psychiatric: Coperative. Nonsuicidal Musculoskeletal: No joint swelling or deformity. Normal range of motion. - Labs CBC & Chem 7: 08/31/18 04:17 08/31/18 04:17 Labs: Abnormal Lab Results - Last 24 Hours (Table) 08/30/18 08/30/18 Range/Units 04:07 04:07 RBC 2.90 L (4.30-5.90) m/uL Hgb 8.0 L (13.0-17.5) gm/dL Hct 26.6 L (39.0-53.0) % MCHC 29.9 L (31.0-37.0) g/dL RDW 16.2 H (11.5-15.5) % Neutrophils # 8.4 H (1.3-7.7) k/uL Lymphocytes # 0.8 L (1.0-4.8) k/uL Sodium 134 L (137-145) mmol/L Calcium 7.5 L (8.4-10.2) mg/dL Microbiology - Last 24 Hours (Table) 08/28/18 07:43 Gram Stain - Final Other - Other Wound Culture - Final Escherichia coli 08/28/18 07:43 Anaerobic Culture - Final Scrotum 08/28/18 07:43 Anaerobic Culture - Final Scrotum 08/28/18 07:43 Gram Stain - Final Other - Other Wound Culture - Final Escherichia coli 08/27/18 01:10 Blood Culture - Preliminary Blood No Growth after 72 hours 08/27/18 01:03 Blood Culture - Preliminary Blood No Growth after 72 hours Assessment and Plan Assessment: 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 Status post debridement on 08/28/2018. Wound cultures showing E. coli. Atrial tachycardia/flutter. Spontaneously converted to sinus rhythm. Elevated troponin level. Likely demand ischemia unlikely ACS at this time Lactic acidosis. Improved Pulmonary vascular congestion with possible pneumonia Chronic normocytic anemia History of prostate cancer and urothelial involvement. Chronic indwelling Justin catheter. Last exchange 5 days back Peripheral neuropathy. Nondiabetic History of AAA repair History of smoking DVT prophylaxis. Patient will be continued on broad-spectrum antibiotics in the form of vancomycin and Zosyn. Wound cultures are growing gram-negative bacilli. Vancomycin has been discontinued. ID is following. Currently nothing by mouth. Continue with IV hydration and monitor respiratory status. \ Follow up closely and further recommendations based on the clinical course. Prognosis is poor with the patient is unable to take oral diet.. Time with Patient: Greater than 30
--- NOTE | 2018-08-31 22:20 | P.PN ---
Subjective Progress Note Date: 08/31/18 Principal diagnosis: Scrotal gangrene Patient is a 88-year-old male with a known history of prostate cancer, urothelial cancer and chronic indwelling catheter presented to [facility] initially from [facility] home with complaints of generalized weakness and scrotal swelling for past 1 week. Patient was found have elevated troponin level and was eventually transferred to [facility]. There was also concern for pneumonia at the time. Patient was having dark discoloration and swelling of the scrotal area for the past 1 week. Patient does have pain somewhat. Otherwise patient denied any complaints of chest pain. Mild shortness of breath. Chest x-ray showed atelectasis and possible vascular congestion. Patient was found have necrotic scrotum. Patient was seen by urology and is planning for OR in the afternoon. Patient is on broad-spectrum antibiotics currently. Cardiology and ID was consulted as well. Chest x-ray showed persistent but improving features of congestive heart failure. Underlying infiltrate of other etiology not excluded. Correlate clinically and progress studies are recommended. 08/28/2018 Currently patient came back from operating room for debridement. Yesterday evening patient went into atrial flutter and was transferred to intensive care unit. Patient was started on amiodarone drip. Otherwise no fever no chills. Continued on IV antibiotics of Zosyn and vancomycin as per ID recommendations. Leukocytosis is improving. No other acute overnight issues. Currently maintaining sinus rhythm. 2-D echocardiogram was done. 08/29/2018 Patient is more awake and oriented today. Denied any complaints of chest pain or shortness of breath. Currently maintaining sinus rhythm. Heart rate is controlled. Wound culture showed gram-negative bacilli. Leukocytosis is trending down. Patient is being continued on antibiotics in the form of vancomycin and Zosyn. Patient is being continued on amiodarone drip until completion as per cardiology. No fever no chills. Pain is controlled otherwise. Chest x-ray showed stable left lower lobe infiltrate/atelectasis. 08/30/2018 Patient is oriented but lethargic. Failed swallow evaluation and is currently nothing by mouth. Wound cultures are growing E. coli currently patient is on antibiotics in the form of Zosyn. Hemodynamically stable. Amiodarone drip has been discontinued. Patient is currently being maintaining sinus rhythm. Family is considering hospice care. No fever no chills. Patient is being transferred to medical floor from ICU. 08/31/2018 Patient is currently in the general medical floor. Patient was able to eat thickened liquids with bedside swallow evaluation. Family wants to continue with oral feeding. Otherwise patient is more awake and oriented. He is generally weak. No fever no chills. Patient is being continued on antibiotics in the form of Zosyn. Current medications reviewed. Objective - Vital Signs Vital signs: Vital Signs Temp 97.4 F L 08/31/18 21:41 Pulse 70 08/31/18 21:41 Resp 16 08/31/18 21:41 BP 124/64 08/31/18 21:41 Pulse Ox 96 08/31/18 21:41 Intake & Output 08/31/18 08/31/18 09/01/18 06:59 18:59 06:59 Intake Total 200 20 Output Total 535 1600 Balance -335 -1580 Weight 73.2 kg Intake: IV 200 Piperacillin-Tazobactam 3 25 .375 gm In Sodium Chloride 0.9% 100 ml @ 25 mls/hr IVPB Q8H [facility] Rx#: [id number] Sodium Chloride 0.9% 1, 175 000 ml @ 50 mls/hr IV . Q20H [facility] Rx#:[id number] Oral 20 Output: Urine 535 1600 Other: Voiding Method Indwelling Catheter Indwelling Catheter # Voids 0 0 - Exam PHYSICAL EXAMINATION: Patient is lying in the bed comfortably, no acute distress, awake alert and oriented. Seems lethargic. HEENT: Normocephalic. Neck is supple. Pupils reactive. Nostrils clear. Oral cavity is moist. Ears reveal no drainage. Neck reveals no JVD, carotid bruits, or thyromegaly. CHEST EXAMINATION: Trachea is central. Symmetrical expansion. Bibasilar diminished air entry. Lung delaney clear to auscultation and percussion. CARDIAC: Normal S1, S2 with no gallops. No murmurs ABDOMEN: Soft. Bowel sounds normal. No organomegaly. No abdominal bruits. Extremities: reveal no edema. No clubbing or cyanosis Neurologically awake, alert, oriented x2-3 with well-coordinated movements. No focal deficits noted Skin: No rash or skin lesions. Scrotal area is bandaged. Post surgery.. Psychiatric: Coperative. Nonsuicidal Musculoskeletal: No joint swelling or deformity. Normal range of motion. - Labs CBC & Chem 7: 08/31/18 04:17 08/31/18 04:17 Labs: Abnormal Lab Results - Last 24 Hours (Table) 08/31/18 08/31/18 Range/Units 04:17 04:17 RBC 2.91 L (4.30-5.90) m/uL Hgb 8.1 L (13.0-17.5) gm/dL Hct 26.9 L (39.0-53.0) % MCHC 30.0 L (31.0-37.0) g/dL RDW 16.3 H (11.5-15.5) % Neutrophils # 8.3 H (1.3-7.7) k/uL Lymphocytes # 0.9 L (1.0-4.8) k/uL Chloride 110 H (98-107) mmol/L Carbon Dioxide 21 L (22-30) mmol/L Calcium 7.8 L (8.4-10.2) mg/dL Microbiology - Last 24 Hours (Table) 08/27/18 01:10 Blood Culture - Preliminary Blood No Growth after 96 hours 08/27/18 01:03 Blood Culture - Preliminary Blood No Growth after 96 hours Assessment and Plan Assessment: 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 Status post debridement on 08/28/2018. Wound cultures showing E. coli. Atrial tachycardia/flutter. Spontaneously converted to sinus rhythm. Elevated troponin level. Likely demand ischemia unlikely ACS at this time Lactic acidosis. Improved Pulmonary vascular congestion with possible pneumonia Chronic normocytic anemia History of prostate cancer and urothelial involvement. Chronic indwelling Justin catheter. Last exchange 5 days back Peripheral neuropathy. Nondiabetic History of AAA repair History of smoking DVT prophylaxis. Patient will be continued on broad-spectrum antibiotics in the form of vancomycin and Zosyn. Wound cultures are growing gram-negative bacilli. Vancomycin has been discontinued. ID is following. Currently patient is tolerating thickened liquids.. Continue with IV hydration and monitor respiratory status. \ Follow up closely and further recommendations based on the clinical course. Prognosis is poor with with multiple medical problems and comorbid conditions...
[2018-09-01] MEDS: PIPERACILLIN-TAZOBACTAM 3.375 GM in SODIUM CHLORIDE 0.9% 100 ML IVPB SCH ×3 (02:32→16:56)
[2018-09-01] MEDS: HYDROmorphone 1 MG/ML 1 ML SYRINGE IVP PRN ×5 (02:36→22:20)
[2018-09-01] MEDS: SERTRALINE 25 MG TAB PO SCH (08:18)
[2018-09-01 08:24] LABS: Anion Gap 4 mmol/L; Blood Urea Nitrogen 14 mg/dL (9-20); Calcium 7.7 mg/dL (8.4-10.2); Carbon Dioxide 24 mmol/L (22-30); Chloride 113 mmol/L (98-107); Glucose 87 mg/dL (74-99); Magnesium 2.1 mg/dL (1.6-2.3); Phosphorus 2.6 mg/dL (2.5-4.5); Potassium 4.1 mmol/L (3.5-5.1); Sodium 141 mmol/L (137-145)
[2018-09-01] MEDS: ENOXAPARIN 40 MG/0.4 ML SYRINGE SQ SCH (08:48)
[2018-09-01] MEDS: PANTOPRAZOLE 40 MG/10 ML VIAL IV SCH (08:48)
--- NOTE | 2018-09-01 08:52 | P.PN ---
Progress Note - Text Progress Note Date: 09/01/18 The patient is afebrile and has been transferred from the intensive care unit to a regular floor. He remains very weak. An attempt was made to give the patient some food orally yesterday but apparently he was unable to tolerate much at all. A decision as to whether or not a PEG tube will be inserted has not yet been made. Physical exam: Urine draining from the urethral and suprapubic catheters are clear. Minimal drainage from suprapubic Hector drain and this will be removed. There is a thin layer of necrotic tissue overlying the testicles and along the skin edges but there is no evidence of abscess. A portion of the necrotic tissue will be debrided by me tomorrow. The patient continues to decline overall due to his loss of muscle strength. He was ambulatory 10 days ago but has lost a dramatic amount of strength since then. If the patient remains nutritionally depleted it is unlikely that he will recover.
[2018-09-01 08:57] LABS: Anisocytosis Slight; HCT 26.1 % (39.0-53.0); Hypochromasia Marked; MCH 27.7 pg (25.0-35.0); MCHC 30.6 g/dL (31.0-37.0); MCV 90.6 fL (80.0-100.0); Mean Platelet Volume 7.8; Platelet Count 274 k/uL (150-450); RBC 2.88 m/uL (4.30-5.90); RDW 16.7 % (11.5-15.5); WBC 5.7 k/uL (3.8-10.6)
[2018-09-01] MEDS: IPRATROPIUM-ALBUTEROL 3 ML NEB INHALATION SCH ×4 (09:12→20:54)
[2018-09-01 11:04] LABS: Band Neutrophils % 1 %; Lymphocytes # (M) 0.63 k/uL (1.0-4.8); Monocytes # (M) 0.46 k/uL (0-1.0); Neutrophils % (M) 80 %; Nucleated Red Blood Cells 0 /100 WBC (0-0); Total Cells Counted 100
[2018-09-01] MEDS: SODIUM CHLORIDE 0.9% 1,000 ML IV SCH (13:10)
--- NOTE | 2018-09-02 00:03 | P.PN ---
Subjective Progress Note Date: 09/01/18 Principal diagnosis: Scrotal gangrene Patient is a 88-year-old male with a known history of prostate cancer, urothelial cancer and chronic indwelling catheter presented to [facility] initially from [facility] home with complaints of generalized weakness and scrotal swelling for past 1 week. Patient was found have elevated troponin level and was eventually transferred to [facility]. There was also concern for pneumonia at the time. Patient was having dark discoloration and swelling of the scrotal area for the past 1 week. Patient does have pain somewhat. Otherwise patient denied any complaints of chest pain. Mild shortness of breath. Chest x-ray showed atelectasis and possible vascular congestion. Patient was found have necrotic scrotum. Patient was seen by urology and is planning for OR in the afternoon. Patient is on broad-spectrum antibiotics currently. Cardiology and ID was consulted as well. Chest x-ray showed persistent but improving features of congestive heart failure. Underlying infiltrate of other etiology not excluded. Correlate clinically and progress studies are recommended. 08/28/2018 Currently patient came back from operating room for debridement. Yesterday evening patient went into atrial flutter and was transferred to intensive care unit. Patient was started on amiodarone drip. Otherwise no fever no chills. Continued on IV antibiotics of Zosyn and vancomycin as per ID recommendations. Leukocytosis is improving. No other acute overnight issues. Currently maintaining sinus rhythm. 2-D echocardiogram was done. 08/29/2018 Patient is more awake and oriented today. Denied any complaints of chest pain or shortness of breath. Currently maintaining sinus rhythm. Heart rate is controlled. Wound culture showed gram-negative bacilli. Leukocytosis is trending down. Patient is being continued on antibiotics in the form of vancomycin and Zosyn. Patient is being continued on amiodarone drip until completion as per cardiology. No fever no chills. Pain is controlled otherwise. Chest x-ray showed stable left lower lobe infiltrate/atelectasis. 08/30/2018 Patient is oriented but lethargic. Failed swallow evaluation and is currently nothing by mouth. Wound cultures are growing E. coli currently patient is on antibiotics in the form of Zosyn. Hemodynamically stable. Amiodarone drip has been discontinued. Patient is currently being maintaining sinus rhythm. Family is considering hospice care. No fever no chills. Patient is being transferred to medical floor from ICU. 08/31/2018 Patient is currently in the general medical floor. Patient was able to eat thickened liquids with bedside swallow evaluation. Family wants to continue with oral feeding. Otherwise patient is more awake and oriented. He is generally weak. No fever no chills. Patient is being continued on antibiotics in the form of Zosyn. 09/01/2018 Patient was very lethargic this morning and is unable to eat anything. Otherwise patient is being continued on antibiotics. Urology is following. We will discuss with family regarding hospice care tomorrow. Prognosis is poor. Current medications reviewed. Objective - Vital Signs Vital signs: Vital Signs Temp 98.6 F 09/01/18 21:00 Pulse 94 09/01/18 21:00 Resp 16 09/01/18 21:00 BP 133/58 09/01/18 21:00 Pulse Ox 94 L 09/01/18 21:00 Intake & Output 09/01/18 09/01/18 09/02/18 06:59 18:59 06:59 Intake Total 800 500 Output Total 450 300 Balance 350 200 Intake: IV 800 500 Piperacillin-Tazobactam 3 200 100 .375 gm In Sodium Chloride 0.9% 100 ml @ 25 mls/hr IVPB Q8H [facility] Rx#: [id number] Sodium Chloride 0.9% 1, 600 400 000 ml @ 50 mls/hr IV . Q20H [facility] Rx#:[id number] Oral 0 Output: Drainage 0 Right 0 Urine 450 300 Other: Voiding Method Indwelling Catheter Indwelling Catheter - Exam PHYSICAL EXAMINATION: Patient is lying in the bed comfortably, no acute distress, awake alert and very lethargic. HEENT: Normocephalic. Neck is supple. Pupils reactive. Nostrils clear. Oral cavity is moist. Ears reveal no drainage. Neck reveals no JVD, carotid bruits, or thyromegaly. CHEST EXAMINATION: Trachea is central. Symmetrical expansion. Bibasilar diminished air entry. Lung delaney clear to auscultation and percussion. CARDIAC: Normal S1, S2 with no gallops. No murmurs ABDOMEN: Soft. Bowel sounds normal. No organomegaly. No abdominal bruits. Extremities: reveal no edema. No clubbing or cyanosis Neurologically awake, alert, oriented x1 lethargic and moves slowly.. No focal deficits noted Skin: No rash or skin lesions. Scrotal area is bandaged. Post surgery.. Psychiatric: Coperative. Could not be assessed at this time. Musculoskeletal: No joint swelling or deformity. Normal range of motion. - Labs CBC & Chem 7: 09/01/18 07:18 09/01/18 07:18 Labs: Abnormal Lab Results - Last 24 Hours (Table) 09/01/18 09/01/18 Range/Units 07:18 07:18 RBC 2.88 L (4.30-5.90) m/uL Hgb 8.0 L (13.0-17.5) gm/dL Hct 26.1 L (39.0-53.0) % MCHC 30.6 L (31.0-37.0) g/dL RDW 16.7 H (11.5-15.5) % Lymphocytes # (Manual) 0.63 L (1.0-4.8) k/uL Chloride 113 H (98-107) mmol/L Calcium 7.7 L (8.4-10.2) mg/dL Microbiology - Last 24 Hours (Table) 08/27/18 01:10 Blood Culture - Preliminary Blood No Growth after 120 hours 08/27/18 01:03 Blood Culture - Preliminary Blood No Growth after 120 hours Assessment and Plan Assessment: 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 Status post debridement on 08/28/2018. Wound cultures showing E. coli. Poor oral intake and failed swallow evaluation Atrial tachycardia/flutter. Spontaneously converted to sinus rhythm. Elevated troponin level. Likely demand ischemia unlikely ACS at this time Lactic acidosis. Improved Pulmonary vascular congestion with possible pneumonia Chronic normocytic anemia History of prostate cancer and urothelial involvement. Chronic indwelling Justin catheter. Last exchange 5 days back Peripheral neuropathy. Nondiabetic History of AAA repair History of smoking DVT prophylaxis. Patient will be continued on broad-spectrum antibiotics in the form of vancomycin and Zosyn. Wound cultures are growing gram-negative bacilli. Vancomycin has been discontinued. ID is following. Currently patient is tolerating thickened liquids.. Continue with IV hydration and monitor respiratory status. \ Follow up closely and further recommendations based on the clinical course. Prognosis is poor with with multiple medical problems and comorbid conditions...
[2018-09-02] MEDS: PIPERACILLIN-TAZOBACTAM 3.375 GM in SODIUM CHLORIDE 0.9% 100 ML IVPB SCH ×3 (01:57→17:34)
[2018-09-02] MEDS: HYDROmorphone 1 MG/ML 1 ML SYRINGE IVP PRN ×4 (05:54→22:42)
[2018-09-02 07:35] LABS: Anisocytosis Slight; Basophils % (A) 0 %; Eosinophils # (A) 0.1 k/uL (0-0.7); Eosinophils % (A) 1 %; HCT 26.9 % (39.0-53.0); HGB 8.2 gm/dL (13.0-17.5); Hypochromasia Marked; Lymphocytes # (A) 0.8 k/uL (1.0-4.8); Lymphocytes % (A) 14 %; MCH 27.6 pg (25.0-35.0); MCHC 30.5 g/dL (31.0-37.0); MCV 90.7 fL (80.0-100.0); Mean Platelet Volume 7.5; Monocytes # (A) 0.3 k/uL (0-1.0); Monocytes % (A) 5 %; Neutrophils # (A) 4.4 k/uL (1.3-7.7); Neutrophils % (A) 78 %; Platelet Count 289 k/uL (150-450); RBC 2.97 m/uL (4.30-5.90); WBC 5.7 k/uL (3.8-10.6)
[2018-09-02 07:59] LABS: Anion Gap 6 mmol/L; Blood Urea Nitrogen 11 mg/dL (9-20); Calcium 7.7 mg/dL (8.4-10.2); Carbon Dioxide 22 mmol/L (22-30); Chloride 117 mmol/L (98-107); Glucose 90 mg/dL (74-99); Magnesium 1.9 mg/dL (1.6-2.3); Phosphorus 2.8 mg/dL (2.5-4.5); Potassium 3.9 mmol/L (3.5-5.1); Sodium 145 mmol/L (137-145)
[2018-09-02] MEDS: IPRATROPIUM-ALBUTEROL 3 ML NEB INHALATION SCH ×4 (09:04→19:45)
[2018-09-02] MEDS: PANTOPRAZOLE 40 MG/10 ML VIAL IV SCH (09:38)
[2018-09-02] MEDS: ENOXAPARIN 40 MG/0.4 ML SYRINGE SQ SCH (09:38)
[2018-09-02] MEDS: SERTRALINE 25 MG TAB PO SCH (09:49)
[2018-09-02] MEDS: SODIUM CHLORIDE 0.9% 1,000 ML IV SCH (09:49)
--- NOTE | 2018-09-02 11:28 | CDI ---
Documentation Clarification Form Date: 09/02/2018 11:19:56 AM From: Adia AmosGaviriaMADHAVI lopez, CCDS Admit Date: 08/26/2018 11:02:00 PM Patient Name: Andrew Young Visit Number: [id number] Discharge Date: ATTENTION: The Clinical Documentation Specialists (CDI) and [facility] Coding Staff appreciate your assistance in clarifying documentation. Please respond to the clarification below the line at the bottom and electronically sign. The CDI & [facility] Coding staff will review the response and follow-up if needed. Please note: Queries are made part of the Legal Health Record. If you have any questions, please contact the author of this message via ITS. Dr. Praveen Busby: Atrial Fibrillation, Atrial Flutter and Atrial tachycardia is documented throughout the progress notes. History/Risk Factors: Bladder, Ureteral & Prostate Cancer, Chronic normocytic anemia, peripheral neuropathy and former smoker. Clinical Indicators: Presented with Sepsis, pneumonia & gangrenous scrotum. HR: 89 - 68 - 58 - 80 EKG/telemetry: R 80 sinus rhythm w/premature supraventricular complexes & with occasional premature ventricular complexes, Left axis deviation, RBBB. Treatment: Patient was transferred to ICU due to A Fib/A flutter, converted prior to receiving IV Amiodarone. IV Levaquin, IV Zosyn, IV Vancomycin, Nitro sl , IV fluid bolus. Consults: Urology, Cardiology, Infectious Disease. In your professional opinion, can you please clarify? Atrial Fibrillaion o Chronic/Permanent o Paroxysmal o Persistent o Other, please specify o Unable to determine Atrial Flutter o Typical o Atypical o Other o Unable to determine (Last Revision: December 2017) paroxysmal MTDD
--- NOTE | 2018-09-02 14:16 | P.PN ---
Progress Note - Text Progress Note Date: 09/02/18 The patient is afebrile. He has become progressively weaker and is tolerating only minimal fluids orally. His family has discussed the pros and cons of placement of a PEG tube versus comfort care with hospice and have elected for the latter. I discussed this at length with the patient's sons and agree with their plans as it is unlikely that given the patient's gradual decline in health even prior to his admission that he would recover to any significant degree even with beginning enteral alimentation. In view of this no further debridement of the scrotum will be done unless the scrotum becomes symptomatic for the patient.
--- NOTE | 2018-09-03 00:01 | PN ---
PROGRESS NOTE DATE OF SERVICE: 09/02/2018. REASON FOR FOLLOWUP: Car's gangrene. INTERVAL HISTORY: The patient is afebrile. He is currently lethargic, though does not seem to be in any distresses. Hemodynamically stable. improved. No nausea, vomiting, diarrhea, reported by nursing staff. PHYSICAL EXAMINATION: Blood pressure 112/55, pulse of 57, temperature 96.7, he is 93% on room air. GENERAL DESCRIPTION: The patient is an elderly male, lying in bed in no distress. RESPIRATORY SYSTEM: Unlabored breathing. LUNGS: Clear to auscultation anteriorly. HEART: S1, S2. Regular rate and rhythm. ABDOMEN: Soft. : Scrotal swelling and redness has decreased. No drainage. LABS: Hemoglobin 8.8, white count 5.7 with a BUN of 11, creatinine 0.72. DIAGNOSTIC IMPRESSION AND PLAN: Patient with Car gangrene and scrotal abscess, status post extensive debridement. Culture has been positive for multi-resistant E coli. The patient is currently on Zosyn, which will be continued for now. Family is leaning more toward hospice or for him and want to switch to hospice. Antibiotic can be safely discontinued. Continue supportive care. MMODL / IJN: [id number] /
[2018-09-03] MEDS: PIPERACILLIN-TAZOBACTAM 3.375 GM in SODIUM CHLORIDE 0.9% 100 ML IVPB SCH (04:43)
[2018-09-03] MEDS: HYDROmorphone 1 MG/ML 1 ML SYRINGE IVP PRN ×3 (04:45→23:16)
[2018-09-03] MEDS: IPRATROPIUM-ALBUTEROL 3 ML NEB INHALATION SCH ×4 (08:24→20:16)
[2018-09-03] MEDS: SERTRALINE 25 MG TAB PO SCH (08:27)
[2018-09-03] MEDS: SODIUM CHLORIDE 0.9% 1,000 ML IV SCH (08:36)
[2018-09-03] MEDS: ENOXAPARIN 40 MG/0.4 ML SYRINGE SQ SCH (08:36)
[2018-09-03] MEDS: PANTOPRAZOLE 40 MG/10 ML VIAL IV SCH (08:36)
[2018-09-03] MEDS: HYDROmorphone 0.5 MG/0.5 ML SYRINGE IVP PRN (20:05)
--- NOTE | 2018-09-04 01:07 | P.PN ---
Subjective Progress Note Date: 09/03/18 Principal diagnosis: Scrotal gangrene Patient is a 88-year-old male with a known history of prostate cancer, urothelial cancer and chronic indwelling catheter presented to [facility] from [facility] home with complaints of generalized weakness and scrotal swelling for past 1 week. Patient was found have elevated troponin level and was eventually transferred to [facility]. There was also concern for pneumonia at the time. Patient was having dark discoloration and swelling of the scrotal area for the past 1 week. Patient does have pain somewhat. Otherwise patient denied any complaints of chest pain. Mild shortness of breath. Chest x-ray showed atelectasis and possible vascular congestion. Patient was found have necrotic scrotum. Patient was seen by urology and is planning for OR in the afternoon. Patient is on broad-spectrum antibiotics currently. Cardiology and ID was consulted as well. Chest x-ray showed persistent but improving features of congestive heart failure. Underlying infiltrate of other etiology not excluded. Correlate clinically and progress studies are recommended. 08/28/2018 Currently patient came back from operating room for debridement. Yesterday evening patient went into atrial flutter and was transferred to intensive care unit. Patient was started on amiodarone drip. Otherwise no fever no chills. Continued on IV antibiotics of Zosyn and vancomycin as per ID recommendations. Leukocytosis is improving. No other acute overnight issues. Currently maintaining sinus rhythm. 2-D echocardiogram was done. 08/29/2018 Patient is more awake and oriented today. Denied any complaints of chest pain or shortness of breath. Currently maintaining sinus rhythm. Heart rate is controlled. Wound culture showed gram-negative bacilli. Leukocytosis is trending down. Patient is being continued on antibiotics in the form of vancomycin and Zosyn. Patient is being continued on amiodarone drip until completion as per cardiology. No fever no chills. Pain is controlled otherwise. Chest x-ray showed stable left lower lobe infiltrate/atelectasis. 08/30/2018 Patient is oriented but lethargic. Failed swallow evaluation and is currently nothing by mouth. Wound cultures are growing E. coli currently patient is on antibiotics in the form of Zosyn. Hemodynamically stable. Amiodarone drip has been discontinued. Patient is currently being maintaining sinus rhythm. Family is considering hospice care. No fever no chills. Patient is being transferred to medical floor from ICU. 08/31/2018 Patient is currently in the general medical floor. Patient was able to eat thickened liquids with bedside swallow evaluation. Family wants to continue with oral feeding. Otherwise patient is more awake and oriented. He is generally weak. No fever no chills. Patient is being continued on antibiotics in the form of Zosyn. 09/01/2018 Patient was very lethargic this morning and is unable to eat anything. Otherwise patient is being continued on antibiotics. Urology is following. We will discuss with family regarding hospice care tomorrow. Prognosis is poor. 09/02/2018 Patient is very lethargic and moaning. Unable to take any oral intake. Family is considering hospice care. 09/03/2018 Patient is being continued on gentle hydration and pain management. Hospice care will be consulted. Current medications reviewed. Objective - Vital Signs Vital signs: Vital Signs Temp 98.2 F 09/03/18 20:35 Pulse 80 09/03/18 20:35 Resp 16 09/03/18 20:35 BP 129/65 09/03/18 20:35 Pulse Ox 94 L 09/03/18 20:35 Intake & Output 09/03/18 09/03/18 09/04/18 06:59 18:59 06:59 Intake Total 1000 500 200 Output Total 600 450 Balance 400 500 -250 Intake: IV 1000 500 200 Piperacillin-Tazobactam 3 200 100 .375 gm In Sodium Chloride 0.9% 100 ml @ 25 mls/hr IVPB Q8H SRIKANTH Rx#: [id number] Sodium Chloride 0.9% 1, 800 400 200 000 ml @ 50 mls/hr IV . Q20H SRIKANTH Rx#:[id number] Output: Urine 600 450 Suprapubic 400 Uretheral (Justin) 200 Other: Voiding Method Indwelling Catheter Indwelling Catheter - Exam PHYSICAL EXAMINATION: Patient is lying in the bed comfortably, no acute distress, awake alert and very lethargic. HEENT: Normocephalic. Neck is supple. Pupils reactive. Nostrils clear. Oral cavity is moist. Ears reveal no drainage. Neck reveals no JVD, carotid bruits, or thyromegaly. CHEST EXAMINATION: Trachea is central. Symmetrical expansion. Bibasilar diminished air entry. Lung delaney clear to auscultation and percussion. CARDIAC: Normal S1, S2 with no gallops. No murmurs ABDOMEN: Soft. Bowel sounds normal. No organomegaly. No abdominal bruits. Extremities: reveal no edema. No clubbing or cyanosis Neurologically awake, alert, oriented x1 lethargic and moves slowly.. No focal deficits noted Skin: No rash or skin lesions. Scrotal area is bandaged. Post surgery.. Psychiatric: Coperative. Could not be assessed at this time. Musculoskeletal: No joint swelling or deformity. Normal range of motion. 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 Status post debridement on 08/28/2018. Wound cultures showing E. coli. Poor oral intake and failed swallow evaluation Atrial tachycardia/flutter. Spontaneously converted to sinus rhythm. Elevated troponin level. Likely demand ischemia unlikely ACS at this time Lactic acidosis. Improved Pulmonary vascular congestion with possible pneumonia Chronic normocytic anemia History of prostate cancer and urothelial involvement. Chronic indwelling Justin catheter. Last exchange 5 days back Peripheral neuropathy. Nondiabetic History of AAA repair History of smoking DVT prophylaxis. Patient will be continued on broad-spectrum antibiotics in the form of vancomycin and Zosyn. Wound cultures are growing gram-negative bacilli. Vancomycin has been discontinued. ID is following. Currently patient is tolerating thickened liquids per the patient is unable to tolerate oral diet and does not want to eat... Continue with IV hydration and monitor respiratory status. \ Follow up closely and further recommendations based on the clinical course. Prognosis is poor with with multiple medical problems and comorbid conditions. Family is considering hospice care..
[2018-09-04] MEDS: SODIUM CHLORIDE 0.9% 1,000 ML IV SCH (06:13)
[2018-09-04] MEDS: IPRATROPIUM-ALBUTEROL 3 ML NEB INHALATION SCH ×3 (08:01→16:03)
[2018-09-04 09:41] VITALS: BMI 23.1
[2018-09-04] MEDS: ENOXAPARIN 40 MG/0.4 ML SYRINGE SQ SCH (10:05)
[2018-09-04] MEDS: HYDROmorphone 1 MG/ML 1 ML SYRINGE IVP PRN (10:05)
[2018-09-04] MEDS: PANTOPRAZOLE 40 MG/10 ML VIAL IV SCH (10:06)
[2018-09-04] MEDS: SERTRALINE 25 MG TAB PO SCH (10:07)
[2018-09-04 13:32] VITALS: BP 129/74; RESP 19; TEMP 98.4
[2018-09-04 16:19] VITALS: PULSE 79
--- NOTE | 2018-09-04 17:39 | P.DS ---
Providers Date of admission: 08/26/18 23:02 Attending physician: Jerry Sinclair Consults: 08/27/18 01:08 Consult Physician Routine Consulting Provider: Gisella Caldwell Consult Reason/Comments: sacral wound, sepsis, anasarca with seeping wound Do you want consulting provider notified?: Yes, Notify in am 08/27/18 02:34 Consult Physician Routine Consulting Provider: Abisai Clarke Consult Reason/Comments: anasarca, urethral Cancer. Do you want consulting provider notified?: Yes, Notify in am 08/27/18 03:44 Consult Physician Routine Consulting Provider: Jalil Marte Consult Reason/Comments: CHF elevated troponin Do you want consulting provider notified?: Yes, Notify in am 08/27/18 19:02 Consult Physician Routine Consulting Provider: Michele Lucero Consult Reason/Comments: ICU management Do you want consulting provider notified?: Already Contacted Primary care physician: Stated None Hospital Course: This is my presented to the care of the patient, patient already been accepted by hospice team as per staff. Patient is a 88-year-old male with a known history of prostate cancer, urothelial cancer and chronic indwelling catheter presented to [facility] initially from [facility] home with complaints of generalized weakness and scrotal swelling for past 1 week. Patient was found have elevated troponin level and was eventually transferred to [facility]. There was also concern for pneumonia at the time. Patient was having dark discoloration and swelling of the scrotal area for the past 1 week. Patient does have pain somewhat. Otherwise patient denied any complaints of chest pain. Mild shortness of breath. Chest x-ray showed atelectasis and possible vascular congestion. Patient was found have necrotic scrotum. He is status post debridement of the scrotal area by neurologist. Antibiotics were treated as per infectious disease team. However the patient condition remains to be guarded. As per documents family were considering hospice care and eventually patient was accepted at hospice given his multiple and advanced comorbidities and advanced age. physical exam Gen.: Patient alert awake but seems confused, NOT IN DISTRESS CVS: s1-s2, RRR, no murmur CHEST:bilateral CTA, no wheezing or crepitation Abdomen: Soft, no tenderness, no distention, positive bowel sounds. Scrotal area is bandaged. Post surgery. Extremities: No leg edema or induration Time spent more than 35 minutes. Patient Condition at Discharge: Fair Plan - Discharge Summary Discharge Rx Participant: No New Discharge Prescriptions: No Action Sertraline [Zoloft] 25 mg PO DAILY Loratadine [Claritin] 10 mg PO DAILY Gabapentin [Neurontin] 300 mg PO BID Atorvastatin [Lipitor] 40 mg PO DAILY Ferrous Sulfate [Iron] 325 mg PO DAILY Multivitamin [Men's Multi-Vitamin] 1 each PO DAILY Haloperidol Con 2mg/1ml 1 mg IM Q6H PRN PRN Reason: Agitation Na Phos,M-B/Na Phos,Di-Ba [Fleet Adult] 133 ml RECTAL ONCE PRN PRN Reason: Constipation Fluticasone Nasal Prole [Flonase Nasal Prole] 2 spr EA NOSTRIL DAILY Calcium Carbonate [Tums] 500 mg PO QID PRN PRN Reason: Gi Upset Bisacodyl 10 mg RECTAL DAILY PRN PRN Reason: Constipation Discharge Medication List Gabapentin [Neurontin] 300 mg PO BID 12/17/17 [History] Loratadine [Claritin] 10 mg PO DAILY 12/17/17 [History] Sertraline [Zoloft] 25 mg PO DAILY 12/17/17 [History] Atorvastatin [Lipitor] 40 mg PO DAILY 01/03/18 [History] Ferrous Sulfate [Iron] 325 mg PO DAILY 01/03/18 [History] Multivitamin [Men's Multi-Vitamin] 1 each PO DAILY 01/03/18 [History] Bisacodyl 10 mg RECTAL DAILY PRN 08/26/18 [History] Calcium Carbonate [Tums] 500 mg PO QID PRN 08/26/18 [History] Fluticasone Nasal Prole [Flonase Nasal Prole] 2 spr EA NOSTRIL DAILY 08/26/18 [ History] Haloperidol Con 2mg/1ml 1 mg IM Q6H PRN 08/26/18 [History] Na Phos,M-B/Na Phos,Di-Ba [Fleet Adult] 133 ml RECTAL ONCE PRN 08/26/18 [History ] Follow up Appointment(s)/Referral(s): None,Stated [Primary Care Provider] - 1-2 days Activity/Diet/Wound Care/Special Instructions: NURSEwhen the pt d/c call [facility] to let them know that the pt is being d/c. also call [facility] and let them know the pt is on the way -- both are aware that the pt be will be d/c today but they wanted to know time frame. [facility] - Discharge Disposition: HOME WITH HOSPICE
== END 2018-09-04 18:00 | disposition hospice, home (50) | DRG 853 ==
LOC: EC 22:35 → 3SCARD 23:02 → 2SICU 08-27 19:33 → 3NMEDONC 08-31 13:03
PROVIDERS: ADMIT Internal Medicine; ATTEND Internal Medicine
PROC: 0T9B00Z Drainage of Bladder with Drainage Device, Open Approach (ICD-10-PCS; 2018-08-28)
PROC: 0JBB0ZZ Excision of Perineum Subcutaneous Tissue and Fascia, Open Approach (ICD-10-PCS; principal; 2018-08-28 06:30)
DX: A41.9 Sepsis, unspecified organism (principal); J18.9 Pneumonia, unspecified organism; E87.1 Hypo-osmolality and hyponatremia; I47.1 Supraventricular tachycardia; J98.11 Atelectasis; N17.9 Acute kidney failure, unspecified; I24.8 Other forms of acute ischemic heart disease; Z51.5 Encounter for palliative care; Z66 Do not resuscitate; G62.9 Polyneuropathy, unspecified; I48.0 Paroxysmal atrial fibrillation; I50.9 Heart failure, unspecified; R13.10 Dysphagia, unspecified; D64.9 Anemia, unspecified; N13.9 Obstructive and reflux uropathy, unspecified; E63.9 Nutritional deficiency, unspecified; E78.5 Hyperlipidemia, unspecified; F32.9 Major depressive disorder, single episode, unspecified; I49.3 Ventricular premature depolarization; N49.3 Fournier gangrene; B96.20 Unspecified Escherichia coli [E. coli] as the cause of diseases classified elsewhere; N49.2 Inflammatory disorders of scrotum; Z79.899 Other long term (current) drug therapy; Z85.038 Personal history of other malignant neoplasm of large intestine; Z85.46 Personal history of malignant neoplasm of prostate; Z85.51 Personal history of malignant neoplasm of bladder; Z91.041 Radiographic dye allergy status; Z87.01 Personal history of pneumonia (recurrent); Z87.891 Personal history of nicotine dependence; Z92.3 Personal history of irradiation; Z96.653 Presence of artificial knee joint, bilateral; Z86.79 Personal history of other diseases of the circulatory system
CPT/HCPCS: 71045; 80048; 80053; 80061; 81001; 82550; 82553; 83036; 83605; 83735; 83880; 84100; 84484; 85025; 86850; 86900; 86901; 87040; 87070; 87075; 87077; 87086; 87186; 87205; 88304; 93306; 94640; 94760; 99285